=== PATIENT | female | born 1935 | race Caucasian/White ===

== ENCOUNTER 2016-08-21 14:47 | Emergency (ER) | payer MEDICARE ==
[2016-08-21] MEDS ORDERED: Aspirin Low Dose CHEW TAB* 81 MG PO ONE (15:38)
[2016-08-21 15:52] LABS: Hematocrit 30 % (35-47); Hemoglobin 9.6 g/dl (12.0-16.0); Mean Corpuscular HGB Conc 32 g/dl (31-36); Mean Corpuscular Hemoglobin 25 pg (27-31); Mean Corpuscular Volume 79 fL (80-97); Mean Platelet Volume 8 um3 (7.4-10.4); Red Blood Count 3.78 10^6/ul (4.0-5.4); Red Cell Distribution Width 16 % (10.5-15); White Blood Count 6.6 10^3/ul (3.5-10.8)
--- NOTE | 2016-08-21 16:03 | RAD ---
Indication: Chest pain. Single frontal view of the chest performed at 1550 hours was reviewed. Comparison is made with previous exam dated April 27, 2015. Hyperinflated lung estrada are noted. No mediastinal shift is noted. No pleural fluid, pneumonia or pneumothorax is noted. Likely chronic interstitial changes noted. IMPRESSION: HYPERINFLATED LUNG ESTRADA WITH CHRONIC INTERSTITIAL DISEASE. PACEMAKER LEADS ARE IN PLACE.
[2016-08-21 16:09] LABS: Albumin 3.5 g/dL (3.2-5.2); BUN/Creatinine Ratio 22.2 (8-20); Calcium 9.3 mg/dL (8.6-10.3); EGFR African American 116.1 (>60); EGFR Non-African American 90.2 (>60); Globulin 3.2 g/dL (2-4); Potassium 4.1 mmol/L (3.5-5.0); Total Bilirubin 0.4 mg/dL (0.2-1.0); Total Protein 6.7 g/dL (6.4-8.9)
[2016-08-21 16:23] LABS: Urine Bacteria Absent (Absent); Urine Bilirubin Negative (Negative); Urine Glucose Negative (Negative); Urine Nitrite Negative (Negative)
[2016-08-21 16:43] LABS: TSH (Thyroid Stimulating Horm) 0.91 mcIU/mL (0.34-5.60)
[2016-08-21] MEDS ORDERED: hydrALAZINE IV* 20 MG/ML VIAL IV SLOW PU ONE (17:16)
[2016-08-21] MEDS ORDERED: Meclizine TAB* 12.5 MG PO ONE (18:16)
--- NOTE | 2016-08-21 20:48 | RAD ---
Indication: Dizziness. Comparison: December 30, 2014 Technique: Noncontrast CT head. Report: Mild to moderate prominence of the cerebral sulci and mild prominence of the cerebellar fissures. Mild to moderate prominence of the ventricles. Patent basal cisterns. 0.7 cm chronic lacunar infarct at the LEFT caudate head without change. Decreased density in the periventricular and subcortical white matter while non-specific is most likely due to chronic microangiopathy. Negative for reyes matter white matter obscuration, intra or extra-axial hemorrhage, or mass effect. No suspicious lesion of the calvarium or skull base. Gross complete opacification of the partially visualized LEFT maxillary sinus with mild indolent thickening of the sinus escalante consistent with chronic sinusitis. Mucosal thickening at the ethmoid sinuses. Complete opacification of the LEFT frontal sinus new compared with the prior exam. Clear mastoid air spaces. Unremarkable scalp. IMPRESSION: 1. No acute intracranial process evident. 2. Small lacunar infarct at the LEFT caudate head without change. Stigmata of chronic small vessel ischemic disease. Mild to moderate involutional change. 3. Paranasal sinus disease. Correlate for potential acute sinusitis.
--- NOTE | 2016-08-21 21:21 | ED ---
Nomi Hays Adam, scribed for Adolfo Durán MD on 08/21/16 at 1553 . HPI Chest Pain - HPI Summary HPI Summary: Pt is an 81 year old female presenting with SOB. She states that she was lying down when it set on suddenly at approximately 13:00. She also c/o CP that set on with the SOB which she describes as pressure in the center of her chest that radiates somewhat to the right side of her chest. It is 6/10 in severity. Nothing alleviates/aggravates the pain. She has never had these symptoms before. Pt denies any nausea, vomiting, diaphoresis, or cough. PMHx of HTN, HLD , TAVR (on Plavix), stents, ICD, and GERD. No tobacco/alcohol use. - History of Current Complaint Chief Complaint: EDChestPainROMI Time Seen by Provider: 08/21/16 15:38 Hx Obtained From: Patient Onset/Duration: Started Hours Ago, Atraumatic, Still Present Timing: Constant Initial Severity: Moderate Current Severity: Moderate Pain Intensity: 6 Pain Scale Used: 0-10 Numeric Chest Pain Radiates: Yes Chest Pain Radiates To:: Other - Right side of chest Character: Pressure/Squeezing Aggravating Factor(s): Nothing Alleviating Factor(s): Nothing Associated Signs and Symptoms: Positive: Shortness of Breath - Allergy/Home Medications Allergies/Adverse Reactions: Allergies Allergy/AdvReac Type Severity Reaction Status Date / Time No Known Allergies Allergy Verified 04/27/15 16:45 Home Medications: Home Medications Acetaminophen TAB* [Tylenol TAB*] 2 tab PO Q4H PRN 08/21/16 [History Confirmed 08/21/16] Atorvastatin* [Lipitor*] 40 mg PO 2100 08/21/16 [History Confirmed 08/21/16] Clopidogrel TAB* [Plavix TAB*] 75 mg PO DAILY 08/21/16 [History Confirmed ] Metoprolol Tartrate TAB* [Lopressor TAB*] 25 mg PO BID 08/21/16 [History Confirmed 08/21/16] Valsartan TAB* [Diovan TAB*] 160 mg PO DAILY 08/21/16 [History Confirmed ] PMH/Surg Hx/FS Hx/Imm Hx Endocrine/Hematology History: Denies: Hx Diabetes Cardiovascular History: Reports: Hx Hypercholesterolemia, Hx Hypertension, Hx Pacemaker/ICD - 2008, Hx Syncope - Oct, 2014, Hx Valvular Heart Disease - Aortic valve narrowing, Other Cardiovascular Problems/Disorders - complete heart block Denies: Hx Congestive Heart Failure GI History: Reports: Hx Gastroesophageal Reflux Disease, Other GI Disorders - Appendectomy History: Denies: Hx Renal Disease Musculoskeletal History: Reports: Hx Orthopedic Injury - fx of L foot, Other Musculoskeletal History - Hip fx and replacement Denies: Hx Arthritis Sensory History: Reports: Hx Vision Problem - left eye "pressure is high" Opthamlomology History: Reports: Hx Vision Problem - left eye "pressure is high " Psychiatric History: Reports: Hx Anxiety - Surgical History Surgery Procedure, Year, and Place: PACER, LEFT TOTAL HIP REPLACEMENT, APPENDECTOMY Infectious Disease History: No Infectious Disease History: Denies: History Other Infectious Disease, Traveled Outside the [place] in Last 30 Days - Family History Known Family History: Positive: Cardiac Disease - Father - Social History Occupation: Retired Lives: Alone Alcohol Use: None Hx Substance Use: No Substance Use Type: Reports: None Hx Tobacco Use: No Smoking Status (MU): Never Smoked Tobacco Review of Systems Negative: Fever Positive: Chest Pain Positive: Shortness Of Breath All Other Systems Reviewed And Are Negative: Yes Physical Exam - Summary Physical Exam Summary: VITAL SIGNS: Reviewed. GENERAL: Patient is a well developed and nourished female who is lying comfortable in the stretcher. Patient is not in any acute respiratory distress. HEAD AND FACE: No signs of trauma. No ecchymosis, hematomas or skull depressions. No sinus tenderness. EYES: PERRLA, EOMI x 2, No injected conjunctiva, no nystagmus. EARS: Hearing grossly intact. Ear canals and tympanic membranes are within normal limits. MOUTH: Oropharynx within normal limits. NECK: Supple, trachea is midline, no adenopathy, no JVD, no carotid bruit, no c- spine tenderness, neck with full ROM. CHEST: Symmetric, no tenderness at palpation LUNGS: Clear to auscultation bilaterally. No wheezing or crackles. CVS: Regular rate and rhythm, S1 and S2 present, no murmurs or gallops appreciated. ABDOMEN: Soft, non-tender. No signs of distention. No rebound no guarding, and no masses palpated. Bowel sounds are normal. EXTREMITIES: FROM in all major joints, no edema, no cyanosis or clubbing. NEURO: Alert and oriented x 3. No acute neurological deficits. Speech is normal and follows commands. SKIN: Dry and warm Triage Information Reviewed: Yes Vital Signs On Initial Exam: Initial Vitals Temp Pulse Resp BP Pulse Ox 97.1 F 58 20 202/77 100 08/21/16 14:50 08/21/16 14:50 08/21/16 14:50 08/21/16 14:50 08/21/16 14:50 Vital Signs Reviewed: Yes Diagnostics - Vital Signs Vital Signs Temp Pulse Resp BP Pulse Ox 08/21/16 14:50 97.1 F 58 20 100 - Laboratory Lab Results: Lab Results 08/21/16 08/21/16 Range/Units 15:40 15:40 WBC 6.6 (3.5-10.8) 10^3/ul RBC 3.78 L (4.0-5.4) 10^6/ul Hgb 9.6 L (12.0-16.0) g/dl Hct 30 L (35-47) % MCV 79 L (80-97) fL MCH 25 L (27-31) pg MCHC 32 (31-36) g/dl RDW 16 H (10.5-15) % Plt Count 223 (150-450) 10^3/ul MPV 8 (7.4-10.4) um3 Neut % (Auto) 62.8 (38-83) % Lymph % (Auto) 21.8 L (25-47) % [place] % (Auto) 8.8 (1-9) % Eos % (Auto) 6.3 H (0-6) % Baso % (Auto) 0.3 (0-2) % Absolute Neuts (auto) 4.2 (1.5-7.7) 10^3/ul Absolute Lymphs (auto) 1.4 (1.0-4.8) 10^3/ul Absolute Monos (auto) 0.6 (0-0.8) 10^3/ul Absolute Eos (auto) 0.4 (0-0.6) 10^3/ul Absolute Basos (auto) 0 (0-0.2) 10^3/ul Absolute Nucleated RBC 0.01 10^3/ul Nucleated RBC % 0.1 INR (Anticoag Therapy) 1.02 (0.89-1.11) APTT 29.9 (26.0-36.3) seconds Result Diagrams: 08/21/16 15:40 08/21/16 15:40 Lab Statement: Any lab studies that have been ordered have been reviewed, and results considered in the medical decision making process. - Radiology CXR Radiology Interpretation Completed By: Radiologist - IMPRESSION: HYPERINFLATED LUNG ESTRADA WITH CHRONIC INTERSTITIAL DISEASE. PACEMAKER LEADS ARE IN PLACE. - CT BRAIN CT Interpretation Completed By: Radiologist - IMPRESSION: 1. No acute intracranial process evident. 2. Small lacunar infarct at the LEFT caudate head without change. Stigmata of chronic small vessel ischemic disease. Mild to moderate involutional change. 3. Paranasal sinus disease. Correlate for potential acute sinusitis. - EKG 14:58 Cardiac Rate: NL - 60 BPM EKG Interpretation: Atrial paced rhythm. No ST elevations. - Additional Comments Diagnostic Additional Comments: Troponin I - 0.00 (15:40), 0.00 (18:40) Chest Pain Course/Dx - Course Course Of Treatment: Pt is an 81 year old female presenting with SOB. She states that she was lying down when it set on suddenly at approximately 13:00. She also c/o CP that set on with the SOB which she describes as pressure in the center of her chest that radiates somewhat to the right side of her chest. It is 6/10 in severity. Nothing alleviates/aggravates the pain. She has never had these symptoms before. Pt denies any nausea, vomiting, diaphoresis, or cough. PMHx of HTN, HLD, TAVR (on Plavix), stents, ICD, and GERD. No tobacco/alcohol use. Assessment/Plan: BW is WNL except for mild chronic anemia. BNP is 251. UA is negative. CXR shows hyperinflated lungs and pacemaker leads in place. EKG as above. In the ED course the pt was given ASA. CP is no longer present. Pt reported dizziness with room spinning. Therefore the pt was given meclizine. After the meclizine the pt reports improvement. We did 2 troponins and they are negative. Therefore the pt will be discharged home with follow-up with PCP and cardiology. The pt will return to the ED if any of her symptoms worsen. I discussed all the findings and test results with the patient. Patient was instructed to return to the emergency room immediately if any of the symptoms return or worsens. Patient understands and agrees. Plan of care was discussed with the patient and patient understands and agrees with the plan of care. All questions were answered at patient satisfaction. There were no further complaints or concerns. Patient is alert and oriented x 3. Patient vital signs are stable. Patient is to follow up with primary care physician in the next 2 to 3 days. Patient understands and agrees. - Chest Pain Differential Diagnosis/HQI/PQRI: Acute DC, ACS, Angina, CHF, Chest Wall, GI Disease, Lower Respiratory Infection, Pulmonary Edema - Diagnoses Provider Diagnoses: Vertigo, Atypical chest pain Discharge - Discharge Plan Condition: Stable Disposition: HOME Patient Education Materials: Vertigo (ED), Chest Pain (ED) Referrals: David Gibson MD [Primary Care Provider] - Darshan Mckeon MD [Medical Doctor] - Additional Instructions: Follow up with Dr. Gibson and Dr. Mckeon (Cardiology). The documentation as recorded by the Nomi dhaliwal Adam accurately reflects the service I personally performed and the decisions made by , Adolfo Durán MD.
[2016-08-21 21:33] VITALS: BP 132/54
== END 2016-08-21 21:20 | disposition home or self-care (01) ==
LOC: ED 14:47
DX: R42 Dizziness and giddiness (principal); R07.89 Other chest pain; R06.02 Shortness of breath
CPT/HCPCS: 36415; 70450; 71010; 80053; 81003; 81015; 82550; 82553; 83605; 83735; 83880; 84443; 84484; 85025; 85610; 85730; 87086; 93005; 96374; 99284; A9270-GY; J0360

== ENCOUNTER 2016-10-12 14:14 | Inpatient (IN) | payer MEDICARE ==
[2016-10-12] MEDS ORDERED: NS 0.9% 1000 ML* 1,000 ML IV ONE (17:10)
[2016-10-12 17:28] LABS: Hematocrit 35 % (35-47); Hemoglobin 11.3 g/dl (12.0-16.0); Mean Corpuscular HGB Conc 33 g/dl (31-36); Mean Corpuscular Hemoglobin 27 pg (27-31); Mean Corpuscular Volume 84 fL (80-97); Mean Platelet Volume 9 um3 (7.4-10.4); Red Blood Count 4.13 10^6/ul (4.0-5.4); Red Cell Distribution Width 20 % (10.5-15); White Blood Count 7.1 10^3/ul (3.5-10.8)
[2016-10-12 17:40] LABS: Albumin 3.8 g/dL (3.2-5.2); BUN/Creatinine Ratio 21.3 (8-20); C Reactive Protein 6.84 mg/L (< 5.00); Calcium 9.3 mg/dL (8.6-10.3); EGFR African American 77.9 (>60); EGFR Non-African American 60.6 (>60); Globulin 3.5 g/dL (2-4); Magnesium 1.9 mg/dL (1.9-2.7); Potassium 4.2 mmol/L (3.5-5.0); Total Bilirubin 0.4 mg/dL (0.2-1.0); Total Protein 7.3 g/dL (6.4-8.9)
[2016-10-12 17:43] LABS: Troponin I 0.01 ng/mL (<0.04)
[2016-10-12 17:44] LABS: Urine Bacteria 1+ (Absent); Urine Bilirubin Negative (Negative); Urine Glucose Negative (Negative); Urine Nitrite Positive (Negative)
[2016-10-12 17:49] LABS: TSH (Thyroid Stimulating Horm) 2.24 mcIU/mL (0.34-5.60)
[2016-10-12] MEDS ORDERED: cefTRIAXone(*) 1 GM in NS 0.9% 50 ML* 50 ML IVPB ONE (18:05)
--- NOTE | 2016-10-12 18:19 | RAD ---
Indication: Weakness. Single frontal view of the chest performed at 1710 hours was reviewed. Comparison is made with previous exam dated August 21, 2016. No mediastinal shift is noted. Heart is of normal size and configuration. Lung ventura appear clear. Pacemaker leads are in place. No changes noted since previous exam. IMPRESSION: NO ACTIVE CARDIOPULMONARY DISEASE IS NOTED.
[2016-10-12] MEDS ORDERED: Ondansetron INJ* 2 MG/ML VIAL IV ONE (18:26)
[2016-10-12] MEDS ORDERED: Iohexol 300* (CONTRAST) 10 ML SDV IV ONE (18:44)
[2016-10-12] MEDS ORDERED: Ondansetron INJ* 2 MG/ML VIAL IV PRN (18:58)
[2016-10-12] MEDS: Metoprolol Tartrate TAB* 25 MG PO SCH ×2 (19:41→21:48)
[2016-10-12] MEDS: Acetaminophen TAB* 325 MG PO PRN (19:41)
[2016-10-12] MEDS: Valsartan TAB* 160 MG PO SCH ×2 (19:41→21:48)
--- NOTE | 2016-10-12 20:26 | RAD ---
Indication: Lower abdominal pain. Contrast: Administered 74.8 ml of OMNIPAQUE 300 mgi/ml CT of the abdomen and pelvis was performed after oral and IV contrast administration. Coronal and sagittal reconstructed images were obtained. Lung bases demonstrate small left pleural effusion. Left basilar atelectasis is noted. Emphysematous changes of the lung ventura are noted. The heart demonstrates no pericardial effusion. There is a hiatal hernia present. The liver is normal in size. No focal lesions or intrahepatic ductal dilatation is noted. The gallbladder demonstrates calcified gallstones in the dependent portion. No pericholecystic fluid or wall thickening is identified. The pancreas demonstrates no mass or pancreatic duct dilatation. The common duct is not dilated. The spleen is normal in size. Bilateral adrenal hyperplasia is noted. The kidneys demonstrate symmetric nephrograms without focal lesions. No retroperitoneal lymphadenopathy is noted. Ectasia of the abdominal aorta is noted measuring up to 2.6 x 3.1 cm. Common iliac arteries are unremarkable. CT of the pelvis demonstrates the cecum to be adjacent to the rectum. Terminal ileum is low in the pelvis posterior to the urinary bladder. Appendix is not visualized. Diverticulosis without definite evidence of diverticulitis. No dilated loops of bowel are noted. The colon is filled with stool. Lumbar spine demonstrates degenerative disc disease at multiple levels with diffuse osteopenia. Patient status post left hip replacement. IMPRESSION: THE CECUM IS ADJACENT TO THE RECTUM LOW IN THE PELVIS. NO EVIDENCE OF BOWEL OBSTRUCTION IS NOTED. DIVERTICULOSIS WITHOUT DEFINITE EVIDENCE OF DIVERTICULITIS. CHOLELITHIASIS WITHOUT BILIARY DUCT DILATATION. A SMALL LEFT PLEURAL EFFUSION IS NOTED. THERE IS A HIATAL HERNIA PRESENT. MILD ECTASIA OF THE ABDOMINAL AORTA IS NOTED. THE PATIENT IS STATUS POST LEFT HIP REPLACEMENT.
[2016-10-12] MEDS: cefTRIAXone VIAL(*) 1,000 MG in NS 0.9% 50 ML* 50 ML IVPB SCH (21:42)
[2016-10-12] MEDS: Atorvastatin* 20 MG TAB PO SCH (21:48)
[2016-10-12] MEDS: Brimonid/Timolol 0.2/0.5%(NF) 10 ML OPHTH.SOLN BOTH EYES SCH (21:49)
--- NOTE | 2016-10-12 21:54 | ED ---
Zeus Hays Billy, scribed for Jw Franklin MD on 10/12/16 at 1431 . Complex/Multi-Sys Presentation - HPI Summary HPI Summary: Patient is an 81 year-old female coming to [facility] for evaluation of general weakness and near-syncopal sensation today. She reports some lower abdominal pain and increased urinary frequency. She denies any chest pain or shortness of breath. Denies any pain or swelling of the legs. - History Of Current Complaint Chief Complaint: EDWeakness Time Seen by Provider: 10/12/16 14:28 Hx Obtained From: Patient Onset/Duration: Gradual Onset Timing: Constant Severity Currently: Moderate Severity Initially: Moderate Aggravating Factor(s): none Alleviating Factor(s): none Associated Signs And Symptoms: Positive: Dizziness, Abdominal Pain, Other - near -syncope, urinary frequency. Negative: SOB, Chest Pain - Allergies/Home Medications Allergies/Adverse Reactions: Allergies Allergy/AdvReac Type Severity Reaction Status Date / Time No Known Allergies Allergy Verified 04/27/15 16:45 Home Medications: Home Medications Acetaminophen TAB* [Tylenol TAB*] 650 mg PO Q4H PRN 10/12/16 [History Confirmed 10/12/16] Amiodarone HCl [Amiodarone HCl-] 200 mg PO DAILY 10/12/16 [History Confirmed ] Aspirin EC Low Dose* [Ecotrin EC Low Dose 81 MG*] 81 mg PO DAILY 10/12/16 [ History Confirmed 10/12/16] Atorvastatin* [Lipitor*] 20 mg PO 2100 10/12/16 [History Confirmed 10/12/16] Brimonid/Timolol 0.2/0.5%(NF) [Combigan 0.2/0.5% (NF)] 1 drop BOTH EYES BID [History Confirmed 10/12/16] Latanoprost 0.005%* [Xalatan 0.005%*] 1 drop BOTH EYES QPM 10/12/16 [History Confirmed 10/12/16] Metoprolol Tartrate TAB* [Lopressor TAB*] 25 mg PO BID 10/12/16 [History Confirmed 10/12/16] Multiple Vitamins W/ Minerals [Ocuvite Eye Health Formul] 1 cap PO DAILY [History Confirmed 10/12/16] Pantoprazole TAB (NF) [Protonix TAB (NF)] 40 mg PO DAILY 10/12/16 [History Confirmed 10/12/16] Rivaroxaban TAB(*) [Xarelto 15 mg(*)] 15 mg PO DAILY 10/12/16 [History Confirmed 10/12/16] Valsartan TAB* [Diovan TAB*] 160 mg PO BEDTIME 10/12/16 [History Confirmed 10/12] PMH/Surg Hx/FS Hx/Imm Hx Endocrine/Hematology History: Denies: Hx Diabetes Cardiovascular History: Reports: Hx Hypercholesterolemia, Hx Hypertension, Hx Pacemaker/ICD - 2007, Hx Syncope - Oct, 2014, Hx Valvular Heart Disease - Aortic valve narrowing, Other Cardiovascular Problems/Disorders - complete heart block Denies: Hx Congestive Heart Failure GI History: Reports: Hx Gastroesophageal Reflux Disease, Other GI Disorders - Appendectomy History: Denies: Hx Renal Disease Musculoskeletal History: Reports: Hx Orthopedic Injury - fx of L foot, Other Musculoskeletal History - Hip fx and replacement Denies: Hx Arthritis Sensory History: Reports: Hx Vision Problem - left eye "pressure is high" Opthamlomology History: Reports: Hx Vision Problem - left eye "pressure is high " Psychiatric History: Reports: Hx Anxiety - Surgical History Surgery Procedure, Year, and Place: PACER, LEFT TOTAL HIP REPLACEMENT, APPENDECTOMY Infectious Disease History: No Infectious Disease History: Denies: History Other Infectious Disease, Traveled Outside the [place] in Last 30 Days - Family History Known Family History: Positive: Cardiac Disease - Father - Social History Occupation: Retired Lives: Alone Alcohol Use: None Hx Substance Use: No Substance Use Type: Reports: None Hx Tobacco Use: No Smoking Status (MU): Never Smoked Tobacco Review of Systems Negative: Chest Pain Negative: Shortness Of Breath Positive: Abdominal Pain Positive: frequency Negative: Myalgia, Edema Neurological: Other - near-syncope Positive: Weakness All Other Systems Reviewed And Are Negative: Yes Physical Exam Triage Information Reviewed: Yes Vital Signs On Initial Exam: Initial Vitals Temp Pulse Resp BP Pulse Ox 98.8 F 61 14 222/89 96 10/12/16 14:19 10/12/16 14:19 10/12/16 14:19 10/12/16 14:19 10/12/16 14:19 Vital Signs Reviewed: Yes Appearance: Positive: Well-Appearing, No Pain Distress Skin: Positive: Warm, Skin Color Reflects Adequate Perfusion, Dry Head/Face: Positive: Normal Head/Face Inspection Eyes: Positive: EOMI, CONSTANTINO ENT: Positive: Normal ENT inspection Neck: Positive: Supple, Nontender Respiratory/Lung Sounds: Positive: Clear to Auscultation, Breath Sounds Present Cardiovascular: Positive: RRR Abdomen Description: Positive: Soft, Other: - Tenderness to the lower abdomen. Bowel Sounds: Positive: Present Musculoskeletal: Positive: Strength/ROM Intact, Other - Calves are soft and nontender.. Negative: Edema Left, Edema Right Neurological: Positive: Normal, Sensory/Motor Intact, Alert, Oriented to Person Place, Time Psychiatric: Positive: Affect/Mood Appropriate Diagnostics - Vital Signs Vital Signs Temp Pulse Resp BP Pulse Ox 10/12/16 14:25 99.2 F 60 16 222/89 97 10/12/16 14:24 59 97 10/12/16 14:22 222/89 10/12/16 14:19 98.8 F 61 14 222/89 96 - Laboratory Lab Results: Lab Results 10/12/16 10/12/16 10/12/16 Range/Units 14:43 14:43 14:43 WBC 7.1 (3.5-10.8) 10^3/ul RBC 4.13 (4.0-5.4) 10^6/ul Hgb 11.3 L (12.0-16.0) g/dl Hct 35 (35-47) % MCV 84 (80-97) fL MCH 27 (27-31) pg MCHC 33 (31-36) g/dl RDW 20 H (10.5-15) % Plt Count 285 (150-450) 10^3/ul MPV 9 (7.4-10.4) um3 Neut % (Auto) 72.4 (38-83) % Lymph % (Auto) 14.2 L (25-47) % [place] % (Auto) 7.1 (1-9) % Eos % (Auto) 5.1 (0-6) % Baso % (Auto) 1.2 (0-2) % Absolute Neuts (auto) 5.1 (1.5-7.7) 10^3/ul Absolute Lymphs (auto) 1.0 (1.0-4.8) 10^3/ul Absolute Monos (auto) 0.5 (0-0.8) 10^3/ul Absolute Eos (auto) 0.4 (0-0.6) 10^3/ul Absolute Basos (auto) 0.1 (0-0.2) 10^3/ul Absolute Nucleated RBC 0 10^3/ul Nucleated RBC % 0 INR (Anticoag Therapy) 1.98 H (0.89-1.11) APTT 40.2 H (26.0-36.3) seconds Sodium 131 L (133-145) mmol/L Potassium 4.2 (3.5-5.0) mmol/L Chloride 99 L (101-111) mmol/L Carbon Dioxide 26 (22-32) mmol/L Anion Gap 6 (2-11) mmol/L BUN 19 (6-24) mg/dL Creatinine 0.89 (0.51-0.95) mg/dL Est GFR ( Amer) 77.9 (>60) Est GFR (Non-Af Amer) 60.6 (>60) BUN/Creatinine Ratio 21.3 H (8-20) Glucose 100 (70-100) mg/dL Lactic Acid (0.5-2.0) mmol/L Calcium 9.3 (8.6-10.3) mg/dL Magnesium 1.9 (1.9-2.7) mg/dL Total Bilirubin 0.40 (0.2-1.0) mg/dL AST 19 (13-39) U/L ALT 16 (7-52) U/L Alkaline Phosphatase 95 (34-104) U/L Total Creatine Kinase 23 (10-223) U/L CK-MB (CK-2) 1.8 (0.6-6.3) ng/mL Troponin I 0.01 (<0.04) ng/mL C-Reactive Protein 6.84 H (< 5.00) mg/L B-Natriuretic Peptide ( - 100) pg/mL Total Protein 7.3 (6.4-8.9) g/dL Albumin 3.8 (3.2-5.2) g/dL Globulin 3.5 (2-4) g/dL Albumin/Globulin Ratio 1.1 (1-3) Lipase 41 (11.0-82.0) U/L TSH 2.24 (0.34-5.60) mcIU/mL Urine Color Urine Appearance Urine pH (5-9) Ur Specific [place] (1.010-1.030) Urine Protein (Negative) Urine Ketones (Negative) Urine Blood (Negative) Urine Nitrate (Negative) Urine Bilirubin (Negative) Urine Urobilinogen (Negative) Ur Leukocyte Esterase (Negative) Urine WBC (Auto) (Absent) Urine RBC (Auto) (Absent) Ur Squamous Epith Cells (Absent) Urine Bacteria (Absent) Urine Glucose (Negative) Urine Ascorbic Acid (Negative) 10/12/16 10/12/16 10/12/16 Range/Units 14:43 15:35 17:35 WBC (3.5-10.8) 10^3/ul RBC (4.0-5.4) 10^6/ul Hgb (12.0-16.0) g/dl Hct (35-47) % MCV (80-97) fL MCH (27-31) pg MCHC (31-36) g/dl RDW (10.5-15) % Plt Count (150-450) 10^3/ul MPV (7.4-10.4) um3 Neut % (Auto) (38-83) % Lymph % (Auto) (25-47) % [place] % (Auto) (1-9) % Eos % (Auto) (0-6) % Baso % (Auto) (0-2) % Absolute Neuts (auto) (1.5-7.7) 10^3/ul Absolute Lymphs (auto) (1.0-4.8) 10^3/ul Absolute Monos (auto) (0-0.8) 10^3/ul Absolute Eos (auto) (0-0.6) 10^3/ul Absolute Basos (auto) (0-0.2) 10^3/ul Absolute Nucleated RBC 10^3/ul Nucleated RBC % INR (Anticoag Therapy) (0.89-1.11) APTT (26.0-36.3) seconds Sodium (133-145) mmol/L Potassium (3.5-5.0) mmol/L Chloride (101-111) mmol/L Carbon Dioxide (22-32) mmol/L Anion Gap (2-11) mmol/L BUN (6-24) mg/dL Creatinine (0.51-0.95) mg/dL Est GFR ( Amer) (>60) Est GFR (Non-Af Amer) (>60) BUN/Creatinine Ratio (8-20) Glucose (70-100) mg/dL Lactic Acid 0.8 (0.5-2.0) mmol/L Calcium (8.6-10.3) mg/dL Magnesium (1.9-2.7) mg/dL Total Bilirubin (0.2-1.0) mg/dL AST (13-39) U/L ALT (7-52) U/L Alkaline Phosphatase (34-104) U/L Total Creatine Kinase (10-223) U/L CK-MB (CK-2) (0.6-6.3) ng/mL Troponin I (<0.04) ng/mL C-Reactive Protein (< 5.00) mg/L B-Natriuretic Peptide 199 H ( - 100) pg/mL Total Protein (6.4-8.9) g/dL Albumin (3.2-5.2) g/dL Globulin (2-4) g/dL Albumin/Globulin Ratio (1-3) Lipase (11.0-82.0) U/L TSH (0.34-5.60) mcIU/mL Urine Color Yellow Urine Appearance Cloudy Urine pH 7.0 (5-9) Ur Specific [place] 1.009 L (1.010-1.030) Urine Protein Negative (Negative) Urine Ketones Negative (Negative) Urine Blood Negative (Negative) Urine Nitrate Positive H (Negative) Urine Bilirubin Negative (Negative) Urine Urobilinogen Negative (Negative) Ur Leukocyte Esterase 2+ H (Negative) Urine WBC (Auto) 1+(6-10/hpf) H (Absent) Urine RBC (Auto) 1+(3-5/hpf) H (Absent) Ur Squamous Epith Cells Present H (Absent) Urine Bacteria 1+ H (Absent) Urine Glucose Negative (Negative) Urine Ascorbic Acid * H (Negative) Result Diagrams: 10/12/16 14:43 10/12/16 14:43 Lab Statement: Any lab studies that have been ordered have been reviewed, and results considered in the medical decision making process. - Radiology CXR Xray Interpretation: No Acute Changes Radiology Interpretation Completed By: Radiologist - CT abd/pel CT Interpretation Completed By: Radiologist - THE CECUM IS ADJACENT TO THE RECTUM LOW IN THE PELVIS. NO EVIDENCE OF BOWEL OBSTRUCTION IS NOTED. DIVERTICULOSIS WITHOUT DEFINITE EVIDENCE OF DIVERTICULITIS. CHOLELITHIASIS WITHOUT BILIARY DUCT DILATATION. A SMALL LEFT PLEURAL EFFUSION IS NOTED. THERE IS A HIATAL HERNIA PRESENT. MILD ECTASIA OF THE ABDOMINAL AORTA IS NOTED. THE PATIENT IS STATUS POST LEFT HIP REPLACEMENT. - EKG 1421 EKG Interpretation: atrial paced rhythm Re-Evaluation - Re-Evaluation First Eval Re-Evaluation Time: 18:13 Comment: Labs reviewed. Complex Multi-Symp Course/Dx Course Of Treatment: NO CRITICAL CARE TIME. Assessment/Plan: ADMIT HOSPITALIST STABLE. - Diagnoses Provider Diagnoses: Weakness, UTI (urinary tract infection), Abdominal pain - Physician Notifications Discussed Care Of Patient With: Dr. Pizarro (hospitalist) at 1830 Discharge - Discharge Plan Condition: Stable Disposition: ADMITTED TO [facility] documentation as recorded by the Zeus dhaliwal Billy accurately reflects the service I personally performed and the decisions made by me, Jw Franklin MD.
--- NOTE | 2016-10-13 00:25 | HP ---
HISTORY AND PHYSICAL: DATE OF ADMISSION: 10/12/16 PRIMARY CARE PROVIDER: David Gibson MD ATTENDING PHYSICIAN WHILE IN THE HOSPITAL: Narayan Nichole MD *(report dictated by Adolph Gross NP) CHIEF COMPLAINT: 1. Dizziness. 2. Weakness. HISTORY OF PRESENT ILLNESS: Ms. Luz is an 81-year-old female patient. She carries a history of hypertension, TIA, third-degree heart block, status post pacemaker, GERD, hiatal hernia, aortic stenosis, AFib, CAD, and syncope. She comes in to the ER today stating that today she was feeling short of breath particularly with exertion, feeling lightheaded, particularly worsening with changing position, feeling weak and tired, not able to perform her activities of daily living. She does state that she felt nauseous. She says that she could not lie flat because she felt short of breath. She says she did not have any chest pain. She said her appetite has been down over the last 24 to 48 hours and she states she has been having symptoms like this off and on for the last several weeks. She recently was in [facility] for a month and was recently discharged after being in [facility] for a week for similar complaints. She denied again having any chest pain. She says that she has any swelling in the lower extremities. Denied any fevers or chills. She does admit to having some lower abdominal-type pressure in the suprapubic area. No recent change in medication, but she has been placed on Xarelto and she has been placed on Protonix. Otherwise, besides this weakness feeling and dizziness, she had been feeling well. She denies having any spinning sensation in the room and says that positional change does make the symptoms worse. She came in to the ED. She was evaluated. Ultimately, it was found she had a UTI and the hospital service was asked to evaluate for admission. PAST MEDICAL HISTORY: Significant for: 1. Hypertension. 2. TIA. 3. Third-degree heart block. 4. GERD. 5. Hiatal hernia. 6. Aortic stenosis. 7. Syncope. 8. CAD. 9. Atrial fibrillation. PAST SURGICAL HISTORY: 1. She has had a pacemaker. 2. She has had aortic valve replacement. 3. She has had cardiac catheterization with stents. 4. Total hip arthroplasty. 5. Appendectomy. HOME MEDICATIONS: According to the discharge summary list include: 1. Protonix 40 mg daily. 2. Diovan 160 mg p.o. daily. 3. Xarelto 15 mg p.o. daily. 4. Multivitamin 1 tablet daily. 5. Lopressor 25 mg p.o. twice a day. 6. Latanoprost 1 drop both eyes daily. 7. Aspirin 81 mg daily. 8. Combigan 1 drop both eyes b.i.d. 9. Lipitor 30 mg daily. 10. Amiodarone 200 mg daily. 11. Tylenol 650 mg every 4 hours as needed. ALLERGIES TO MEDICATIONS: Include no known drug allergies. FAMILY HISTORY: Mother from what the patient states of old age. Father had a history of heart disease. SOCIAL HISTORY: The patient is a nonsmoker. She does not drink alcohol. She lives alone. Surrogate decision maker is her daughter. REVIEW OF SYSTEMS: There is no documented fever. She denies having any ear discharge. There is no rhinorrhea. No sore throat. No thyroid enlargement. She denied having any chest pain. There was orthopnea. There is no nocturnal dyspnea. There is no abdominal pain. There was nausea. There is no vomiting. No dysuria. No frequency. No loss of consciousness. No pruritus. No skin ulcerations. Review of 14 systems completed, all others negative. PHYSICAL EXAMINATION GENERAL: At this time, Ms. Luz is an 81-year-old female patient. She is sitting in the ER stretcher. She does not appear to be in any acute distress. She is awake, she is alert, and she is oriented x3. VITAL SIGNS: Reveals blood pressure 179/94, her blood pressure was 224/79; pulse 60; respirations 18; O2 sat 98%; and temperature 99.2. HEENT: Head is atraumatic and normocephalic. Eyes: EOMs are intact. Sclerae anicteric and not pale. NECK: Supple. Throat: Oral mucosa appears to be moist. No oropharyngeal erythema. LUNGS: Clear to auscultation. No wheezes, rales, or rhonchi. HEART: Sounds S1, S2. Regular rate and rhythm. No murmurs, rubs, or gallops. ABDOMEN: Soft, flat. There was tenderness in the suprapubic area. She had bowel sounds in all 4 quadrants. EXTREMITIES: Pulses were 2+ throughout. She had no peripheral edema. She is able to move all 4 extremities with 5/5 strength. NEUROLOGIC: She is awake, she is alert, and she is oriented x3. Toggler are equal. Tongue midline. No gross focal deficits. SKIN: Intact. DIAGNOSTIC STUDIES/LAB DATA: Revealed WBC of 7.1, RBC of 4.13, hemoglobin 11.3 , hematocrit 35, and platelet count of 285. INR 1.98 and PTT of 40.2. Sodium 131, potassium 4.2, chloride 99, bicarb 26, BUN 19, creatinine of 0.89, glucose 100, lactic 0.8, calcium 9.3, and magnesium 1.9. Total bili 0.4, AST 19, ALT 16 , and alk phos 95. CK 23 and CK-MB 1.8. Troponin 0.01. CRP is 6.8. BNP 199. Lipase 41. TSH of 2.24. Urine showed positive nitrates, 2+ leukocyte esterase, 1+ wbc, and present bacteria. She had a chest x-ray obtained today, which revealed no active cardiopulmonary disease. She had an EKG obtained today, which revealed atrial paced rhythm with a rate of 60. No further interpretation due to paced rhythm. Old medical records were reviewed. ASSESSMENT AND PLAN: Ms. Luz is an 81-year-old female patient coming in to the ER today with complaints of lightheadedness and not feeling well, worsening with position change. On evaluation, was found to have urinary tract infection. She will be admitted under observation status for: 1. Weakness with dizziness: I suspect that there is a component of mild dehydration here. In addition to this, the urinary tract infection is probably not helping. My plan, however, would be to go ahead and treat the urinary tract infection with Rocephin. I will hydrate her. We will give her a liter down here in the ED and see how she responds. In addition to this, we will check orthostatic blood pressures and we will get a PT evaluation. We will continue to monitor. Ultimately though this overall weakness and her generalized decline that she has been having, sounds like several weeks now. She may benefit from assisted living, so I did put a social work consult in for the patient. Because of the lower suprapubic abdominal discomfort, we will go ahead and check a CT of the abdomen and pelvis to make sure she does not have any underlying infection such as diverticulitis or pyelonephritis. Otherwise, suspect this is less likely, so I will continue Rocephin, IV fluids, and hydration and we will follow. 2. Hypertension: Her blood pressures here at one point were in the 200s, it is 179 now. I will go ahead and give her nightly medications and if we need to , we can add on another agent or increase her current agents. 3. History of transient ischemic attack: Continue with secondary prevention. 4. Gastroesophageal reflux disease: Continue PPI therapy. 5. Aortic stenosis: She did have aortic valve replacement. She can follow up with her primary manager of investigations. 6. Coronary artery disease: She is on a beta jonnathan. We will continue that. She is on statin and aspirin, continue. 7. History of atrial fibrillation: Continue the amiodarone at a reduced dose, which was done on Thursday. In addition to this, continue her Xarelto. 8. DVT prophylaxis: She is on Xarelto. We will continue this. 9. Code status: DNR. 10. Fluids, electrolytes, and nutrition: She can have a regular diet. TIME SPENT: Time spent on the admission was approximately 60 minutes; greater than half the time was spent [id number] with the patient obtaining my history and physical, the other half time is spent going over the plan of care with the patient and implementing plan of care. I discussed the plan of care with my attending, Dr. Nichole. He is in agreement. ADOLPH GROSS NP CC: Dr. Gibson* [id number]/[facility] #: [id number] [facility]ENTER[facility]ory
[2016-10-13] MEDS: NS 0.9% 1000 ML* 1,000 ML IV SCH (03:11)
[2016-10-13 07:03] LABS: Hematocrit 30 % (35-47); Hemoglobin 9.9 g/dl (12.0-16.0); Mean Corpuscular HGB Conc 33 g/dl (31-36); Mean Corpuscular Hemoglobin 28 pg (27-31); Mean Corpuscular Volume 84 fL (80-97); Mean Platelet Volume 8 um3 (7.4-10.4); Red Blood Count 3.55 10^6/ul (4.0-5.4); Red Cell Distribution Width 19 % (10.5-15); White Blood Count 6.4 10^3/ul (3.5-10.8)
[2016-10-13 07:12] LABS: Calcium 8.2 mg/dL (8.6-10.3); EGFR African American 77.9 (>60); EGFR Non-African American 60.6 (>60); Potassium 4.3 mmol/L (3.5-5.0)
[2016-10-13] MEDS: Omeprazole CAP* 20 MG PO SCH (10:36)
[2016-10-13] MEDS: Rivaroxaban TAB(*) 15 MG PO SCH (10:36)
[2016-10-13] MEDS: Amiodarone TAB* 200 MG PO SCH (10:37)
[2016-10-13] MEDS: Aspirin EC Low Dose* 81 MG TAB.EC PO SCH (10:37)
[2016-10-13] MEDS: Metoprolol Tartrate TAB* 25 MG PO SCH ×2 (10:37→20:47)
--- NOTE | 2016-10-13 15:22 | PN ---
Subjective Date of Service: 10/13/16 Interval History: Pt is feeling ok. She states she does not know why she did not walk with PT this AM. She states she does not feel weak. No pain or SOB. Objective Active Medications: Acetaminophen (Tylenol Tab*) 650 mg PO Q4H PRN PRN Reason: FEVER/PAIN Last Admin: 10/12/16 19:41 Dose: 650 mg Amiodarone HCl (Cordarone Tab*) 200 mg PO DAILY FOR[facility]LY [facility], [facility] Last Admin: 10/13/16 10:37 Dose: 200 mg Aspirin (Aspirin Ec Low Dose*) 81 mg PO DAILY [facility], [facility] Last Admin: 10/13/16 10:37 Dose: 81 mg Atorvastatin Calcium (Lipitor*) 20 mg PO 2100 [facility], [facility] Last Admin: 10/12/16 21:48 Dose: 20 mg Brimonidine/Timolol (Combigan 0.2/0.5% (Nf)) 1 drop BOTH EYES BID FOR[facility]LY [facility], [facility]1983 Last Admin: 10/12/16 21:49 Dose: Not Given Ceftriaxone Sodium 1,000 mg/ (Sodium Chloride) 50 mls @ 200 mls/hr IVPB Q24H FOR[facility], [facility] Last Admin: 10/12/16 21:42 Dose: 200 mls/hr Sodium Chloride (Ns 0.9% 1000 Ml*) 1,000 mls @ 100 mls/hr IV PER RATE FORMERLY [facility], [facility]–1983 Last Admin: 10/13/16 03:11 Dose: 100 mls/hr Latanoprost (Xalatan 0.005%*) 1 drop BOTH EYES QPM FOR[facility], [facility]1983 Metoprolol Tartrate (Lopressor Tab*) 25 mg PO BID [facility], [facility] Last Admin: 10/13/16 10:37 Dose: 25 mg Omeprazole (Prilosec Cap*) 20 mg PO DAILY [facility] Last Admin: 10/13/16 10:36 Dose: 20 mg Ondansetron HCl (Zofran Inj*) 4 mg IV Q6H PRN PRN Reason: NAUSEA Rivaroxaban (Xarelto(*)) 15 mg PO DAILY [facility], [facility] Last Admin: 10/13/16 10:36 Dose: 15 mg Valsartan (Diovan Tab*) 160 mg PO BEDTIME FOR[facility] Last Admin: 10/12/16 21:48 Dose: 160 mg Vital Signs 10/12/16 10/12/16 10/12/16 19:00 19:35 20:22 Temperature 98.5 F Pulse Rate 60 59 60 Respiratory 17 18 16 Rate Blood Pressure 179/94 195/71 (mmHg) O2 Sat by Pulse 98 95 98 Oximetry 10/12/16 10/12/16 10/12/16 20:25 23:39 23:42 Temperature 98.5 F 98.2 F Pulse Rate 60 60 60 Respiratory 16 16 17 Rate Blood Pressure 195/71 139/67 118/65 (mmHg) O2 Sat by Pulse 98 97 96 Oximetry 10/13/16 10/13/16 10/13/16 03:24 07:56 08:00 Temperature 98.1 F 98.2 F Pulse Rate 60 60 Respiratory 16 16 Rate Blood Pressure 127/62 167/70 (mmHg) O2 Sat by Pulse 93 97 Oximetry 10/13/16 10/13/16 09:59 12:23 Temperature Pulse Rate 59 61 Respiratory Rate Blood Pressure 119/53 184/68 (mmHg) O2 Sat by Pulse 98 100 Oximetry Oxygen Devices in Use Now: None Appearance: Elderly female lying in bed, NAD Eyes: No Scleral Icterus Ears/Nose/Mouth/Throat: Mucous Membranes Moist Respiratory: Symmetrical Chest Expansion and Respiratory Effort, Clear to Auscultation Cardiovascular: NL Sounds; No Murmurs; No JVD, RRR, No Edema Abdominal: NL Sounds; No Tenderness; No Distention Extremities: No Clubbing, Cyanosis Skin: No Rash or Ulcers, No Nodules or Sclerosis Neurological: Alert and Oriented x 3, - Result Diagrams: 10/13/16 06:33 10/13/16 06:33 Additional Lab and Data: Lab Results 10/12/16 10/12/16 10/12/16 Range/Units 14:43 14:43 14:43 WBC 7.1 (3.5-10.8) 10^3/ul RBC 4.13 (4.0-5.4) 10^6/ul Hgb 11.3 L (12.0-16.0) g/dl Hct 35 (35-47) % MCV 84 (80-97) fL MCH 27 (27-31) pg MCHC 33 (31-36) g/dl RDW 20 H (10.5-15) % Plt Count 285 (150-450) 10^3/ul MPV 9 (7.4-10.4) um3 Neut % (Auto) 72.4 (38-83) % Lymph % (Auto) 14.2 L (25-47) % Green % (Auto) 7.1 (1-9) % Eos % (Auto) 5.1 (0-6) % Baso % (Auto) 1.2 (0-2) % Absolute Neuts (auto) 5.1 (1.5-7.7) 10^3/ul Absolute Lymphs (auto) 1.0 (1.0-4.8) 10^3/ul Absolute Monos (auto) 0.5 (0-0.8) 10^3/ul Absolute Eos (auto) 0.4 (0-0.6) 10^3/ul Absolute Basos (auto) 0.1 (0-0.2) 10^3/ul Absolute Nucleated RBC 0 10^3/ul Nucleated RBC % 0 INR (Anticoag Therapy) 1.98 H (0.89-1.11) APTT 40.2 H (26.0-36.3) seconds Sodium 131 L (133-145) mmol/L Potassium 4.2 (3.5-5.0) mmol/L Chloride 99 L (101-111) mmol/L Carbon Dioxide 26 (22-32) mmol/L Anion Gap 6 (2-11) mmol/L BUN 19 (6-24) mg/dL Creatinine 0.89 (0.51-0.95) mg/dL Est GFR ( Amer) 77.9 (>60) Est GFR (Non-Af Amer) 60.6 (>60) BUN/Creatinine Ratio 21.3 H (8-20) Glucose 100 (70-100) mg/dL Lactic Acid (0.5-2.0) mmol/L Calcium 9.3 (8.6-10.3) mg/dL Magnesium 1.9 (1.9-2.7) mg/dL Total Bilirubin 0.40 (0.2-1.0) mg/dL AST 19 (13-39) U/L ALT 16 (7-52) U/L Alkaline Phosphatase 95 (34-104) U/L Total Creatine Kinase 23 (10-223) U/L CK-MB (CK-2) 1.8 (0.6-6.3) ng/mL Troponin I 0.01 (<0.04) ng/mL C-Reactive Protein 6.84 H (< 5.00) mg/L B-Natriuretic Peptide ( - 100) pg/mL Total Protein 7.3 (6.4-8.9) g/dL Albumin 3.8 (3.2-5.2) g/dL Globulin 3.5 (2-4) g/dL Albumin/Globulin Ratio 1.1 (1-3) Lipase 41 (11.0-82.0) U/L TSH 2.24 (0.34-5.60) mcIU/mL Urine Color Urine Appearance Urine pH (5-9) Ur Specific Mcclelland (1.010-1.030) Urine Protein (Negative) Urine Ketones (Negative) Urine Blood (Negative) Urine Nitrate (Negative) Urine Bilirubin (Negative) Urine Urobilinogen (Negative) Ur Leukocyte Esterase (Negative) Urine WBC (Auto) (Absent) Urine RBC (Auto) (Absent) Ur Squamous Epith Cells (Absent) Urine Bacteria (Absent) Urine Glucose (Negative) Urine Ascorbic Acid (Negative) 10/12/16 10/12/16 10/12/16 Range/Units 14:43 15:35 17:35 WBC (3.5-10.8) 10^3/ul RBC (4.0-5.4) 10^6/ul Hgb (12.0-16.0) g/dl Hct (35-47) % MCV (80-97) fL MCH (27-31) pg MCHC (31-36) g/dl RDW (10.5-15) % Plt Count (150-450) 10^3/ul MPV (7.4-10.4) um3 Neut % (Auto) (38-83) % Lymph % (Auto) (25-47) % Green % (Auto) (1-9) % Eos % (Auto) (0-6) % Baso % (Auto) (0-2) % Absolute Neuts (auto) (1.5-7.7) 10^3/ul Absolute Lymphs (auto) (1.0-4.8) 10^3/ul Absolute Monos (auto) (0-0.8) 10^3/ul Absolute Eos (auto) (0-0.6) 10^3/ul Absolute Basos (auto) (0-0.2) 10^3/ul Absolute Nucleated RBC 10^3/ul Nucleated RBC % INR (Anticoag Therapy) (0.89-1.11) APTT (26.0-36.3) seconds Sodium (133-145) mmol/L Potassium (3.5-5.0) mmol/L Chloride (101-111) mmol/L Carbon Dioxide (22-32) mmol/L Anion Gap (2-11) mmol/L BUN (6-24) mg/dL Creatinine (0.51-0.95) mg/dL Est GFR ( Amer) (>60) Est GFR (Non-Af Amer) (>60) BUN/Creatinine Ratio (8-20) Glucose (70-100) mg/dL Lactic Acid 0.8 (0.5-2.0) mmol/L Calcium (8.6-10.3) mg/dL Magnesium (1.9-2.7) mg/dL Total Bilirubin (0.2-1.0) mg/dL AST (13-39) U/L ALT (7-52) U/L Alkaline Phosphatase (34-104) U/L Total Creatine Kinase (10-223) U/L CK-MB (CK-2) (0.6-6.3) ng/mL Troponin I (<0.04) ng/mL C-Reactive Protein (< 5.00) mg/L B-Natriuretic Peptide 199 H ( - 100) pg/mL Total Protein (6.4-8.9) g/dL Albumin (3.2-5.2) g/dL Globulin (2-4) g/dL Albumin/Globulin Ratio (1-3) Lipase (11.0-82.0) U/L TSH (0.34-5.60) mcIU/mL Urine Color Yellow Urine Appearance Cloudy Urine pH 7.0 (5-9) Ur Specific Mcclelland 1.009 L (1.010-1.030) Urine Protein Negative (Negative) Urine Ketones Negative (Negative) Urine Blood Negative (Negative) Urine Nitrate Positive H (Negative) Urine Bilirubin Negative (Negative) Urine Urobilinogen Negative (Negative) Ur Leukocyte Esterase 2+ H (Negative) Urine WBC (Auto) 1+(6-10/hpf) H (Absent) Urine RBC (Auto) 1+(3-5/hpf) H (Absent) Ur Squamous Epith Cells Present H (Absent) Urine Bacteria 1+ H (Absent) Urine Glucose Negative (Negative) Urine Ascorbic Acid * H (Negative) Assess/Plan/Problems-Billing Ms Luz is an 81 yo F with a h/o HTN, CAD, afib and past h/o TIA who presented to the ER for c/o weakness and lightheadedness and was found to have a UTI. - Patient Problems (1) UTI (urinary tract infection) Current Visit: Yes Status: Acute Comment: Urine culture pending. Will continue on ceftriaxone 1g IV daily. She states overall she is feeling better than when she presented to the ER. (2) Weakness Current Visit: Yes Status: Acute Code(s): R53.1 - WEAKNESS SNOMED Code(s) : 87638134 Comment: Likely secondary to UTI. PT saw the patient today but she did not want to walk. PT feels that she will need skilled rehab upon d/c however she just left there last week. WIll have PT re-eval tomorrow-she may need to go back. I have asked nursing to walk the patient tonight. (3) Afib Current Visit: Yes Status: Acute Code(s): I48.91 - UNSPECIFIED ATRIAL FIBRILLATION SNOMED Code(s): 67537068 Comment: HR is controlled and sounds regular on exam. Continue xarelto, amiodarone and metoprolol. (4) Hypertension Current Visit: Yes Status: Acute Code(s): I10 - ESSENTIAL (PRIMARY) HYPERTENSION SNOMED Code(s): 61028068 Comment: BP has fluctuated quite a bit. Monitor for now and continue valsartan and metoprolol. (5) DVT prophylaxis Current Visit: Yes Status: Acute Code(s): SQV6687 - SNOMED Code(s): 362664235 Comment: xarelto (6) DNR (do not resuscitate) Current Visit: Yes Status: Acute
[2016-10-13] MEDS: cefTRIAXone VIAL(*) 1,000 MG in NS 0.9% 50 ML* 50 ML IVPB SCH (18:24)
[2016-10-13] MEDS: Brimonid/Timolol 0.2/0.5%(NF) 10 ML OPHTH.SOLN BOTH EYES SCH ×2 (18:29→20:47)
[2016-10-13] MEDS: Latanoprost 0.005%* 2.5 ml BTL BOTH EYES SCH (18:31)
[2016-10-13] MEDS: Atorvastatin* 20 MG TAB PO SCH (20:47)
[2016-10-13] MEDS: Valsartan TAB* 160 MG PO SCH (20:47)
[2016-10-14] MEDS: Metoprolol Tartrate TAB* 25 MG PO SCH ×2 (09:03→21:35)
[2016-10-14] MEDS: Omeprazole CAP* 20 MG PO SCH (09:04)
[2016-10-14] MEDS: Amiodarone TAB* 200 MG PO SCH (09:04)
[2016-10-14] MEDS: Rivaroxaban TAB(*) 15 MG PO SCH (09:04)
[2016-10-14] MEDS: Aspirin EC Low Dose* 81 MG TAB.EC PO SCH (09:04)
[2016-10-14] MEDS: Brimonid/Timolol 0.2/0.5%(NF) 10 ML OPHTH.SOLN BOTH EYES SCH ×2 (09:05→21:39)
[2016-10-14] MEDS ORDERED: Senna TAB PO PRN (12:28)
[2016-10-14] MEDS ORDERED: Polyethylene Glycol 3350* 17 GM PACKET PO PRN (12:28)
[2016-10-14] MEDS: NS 0.9% 1000 ML* 1,000 ML IV SCH (13:55)
[2016-10-14] MEDS ORDERED: Docusate CAP* 100 MG ONE (15:53)
[2016-10-14] MEDS: Docusate CAP* 100 MG PO PRN ×2 (15:54→21:37)
[2016-10-14] MEDS: Latanoprost 0.005%* 2.5 ml BTL BOTH EYES SCH (17:31)
[2016-10-14] MEDS: cefTRIAXone VIAL(*) 1,000 MG in NS 0.9% 50 ML* 50 ML IVPB SCH (18:33)
--- NOTE | 2016-10-14 21:21 | PN ---
Subjective Date of Service: 10/14/16 Interval History: Patient feeling better Objective Active Medications: Acetaminophen (Tylenol Tab*) 650 mg PO Q4H PRN PRN Reason: FEVER/PAIN Last Admin: 10/12/16 19:41 Dose: 650 mg Amiodarone HCl (Cordarone Tab*) 200 mg PO DAILY [facility] Last Admin: 10/14/16 09:04 Dose: 200 mg Aspirin (Aspirin Ec Low Dose*) 81 mg PO DAILY [facility] Last Admin: 10/14/16 09:04 Dose: 81 mg Atorvastatin Calcium (Lipitor*) 20 mg PO 2100 [facility] Last Admin: 10/13/16 20:47 Dose: 20 mg Brimonidine/Timolol (Combigan 0.2/0.5% (Nf)) 1 drop BOTH EYES BID [facility] Last Admin: 10/14/16 09:05 Dose: 1 drop Docusate Sodium (Colace Cap*) 100 mg PO BID PRN PRN Reason: CONSTIPATION Last Admin: 10/14/16 15:54 Dose: 100 mg Ceftriaxone Sodium 1,000 mg/ (Sodium Chloride) 50 mls @ 200 mls/hr IVPB Q24H [facility] Last Admin: 10/14/16 18:33 Dose: 200 mls/hr Sodium Chloride (Ns 0.9% 1000 Ml*) 1,000 mls @ 100 mls/hr IV PER RATE [facility] Last Admin: 10/14/16 13:55 Dose: 100 mls/hr Latanoprost (Xalatan 0.005%*) 1 drop BOTH EYES 2130 [facility] Metoprolol Tartrate (Lopressor Tab*) 25 mg PO BID [facility] Last Admin: 10/14/16 09:03 Dose: 25 mg Omeprazole (Prilosec Cap*) 20 mg PO DAILY [facility] Last Admin: 10/14/16 09:04 Dose: 20 mg Ondansetron HCl (Zofran Inj*) 4 mg IV Q6H PRN PRN Reason: NAUSEA Polyethylene Glycol/Electrolytes (Miralax*) 17 gm PO DAILY PRN PRN Reason: CONSTIPATION Rivaroxaban (Xarelto(*)) 15 mg PO DAILY [facility] Last Admin: 10/14/16 09:04 Dose: 15 mg Senna (Senokot Tab*) 2 tab PO BEDTIME PRN PRN Reason: CONSTIPATION Valsartan (Diovan Tab*) 160 mg PO BEDTIME [facility] Last Admin: 10/13/16 20:47 Dose: 160 mg Vital Signs 10/13/16 10/13/16 10/14/16 22:01 23:53 03:54 Temperature 98.0 F 97.9 F Pulse Rate 59 60 Respiratory 16 18 16 Rate Blood Pressure 126/53 162/70 (mmHg) O2 Sat by Pulse 96 97 Oximetry 10/14/16 10/14/16 10/14/16 04:30 07:27 08:00 Temperature 97.7 F Pulse Rate 59 59 Respiratory 16 16 Rate Blood Pressure 159/71 214/82 (mmHg) O2 Sat by Pulse 96 98 Oximetry 10/14/16 10/14/16 10/14/16 08:45 08:54 13:56 Temperature 97.7 F Pulse Rate 60 60 Respiratory 16 Rate Blood Pressure 198/100 185/81 (mmHg) O2 Sat by Pulse 98 99 Oximetry 10/14/16 10/14/16 16:28 16:31 Temperature 98.0 F Pulse Rate 60 Respiratory Rate Blood Pressure 209/86 205/84 (mmHg) O2 Sat by Pulse 99 Oximetry Oxygen Devices in Use Now: None Appearance: WD/WN elderly woman lying in bed in NAD Eyes: No Scleral Icterus Ears/Nose/Mouth/Throat: Mucous Membranes Moist Neck: NL Appearance and Movements; NL JVP, No Thyroid Enlargement, Masses Respiratory: Clear to Auscultation Cardiovascular: - - S1S2 paula Abdominal: NL Sounds; No Tenderness; No Distention, No Hepatosplenomegaly Lymphatic: No Cervical Adenopathy Extremities: No Edema, No Clubbing, Cyanosis Skin: No Rash or Ulcers Neurological: Alert and Oriented x 3 Result Diagrams: 10/13/16 06:33 10/13/16 06:33 Additional Lab and Data: Lab Results 10/12/16 10/12/16 10/12/16 Range/Units 14:43 14:43 14:43 WBC 7.1 (3.5-10.8) 10^3/ul RBC 4.13 (4.0-5.4) 10^6/ul Hgb 11.3 L (12.0-16.0) g/dl Hct 35 (35-47) % MCV 84 (80-97) fL MCH 27 (27-31) pg MCHC 33 (31-36) g/dl RDW 20 H (10.5-15) % Plt Count 285 (150-450) 10^3/ul MPV 9 (7.4-10.4) um3 Neut % (Auto) 72.4 (38-83) % Lymph % (Auto) 14.2 L (25-47) % [place] % (Auto) 7.1 (1-9) % Eos % (Auto) 5.1 (0-6) % Baso % (Auto) 1.2 (0-2) % Absolute Neuts (auto) 5.1 (1.5-7.7) 10^3/ul Absolute Lymphs (auto) 1.0 (1.0-4.8) 10^3/ul Absolute Monos (auto) 0.5 (0-0.8) 10^3/ul Absolute Eos (auto) 0.4 (0-0.6) 10^3/ul Absolute Basos (auto) 0.1 (0-0.2) 10^3/ul Absolute Nucleated RBC 0 10^3/ul Nucleated RBC % 0 INR (Anticoag Therapy) 1.98 H (0.89-1.11) APTT 40.2 H (26.0-36.3) seconds Sodium 131 L (133-145) mmol/L Potassium 4.2 (3.5-5.0) mmol/L Chloride 99 L (101-111) mmol/L Carbon Dioxide 26 (22-32) mmol/L Anion Gap 6 (2-11) mmol/L BUN 19 (6-24) mg/dL Creatinine 0.89 (0.51-0.95) mg/dL Est GFR ( Amer) 77.9 (>60) Est GFR (Non-Af Amer) 60.6 (>60) BUN/Creatinine Ratio 21.3 H (8-20) Glucose 100 (70-100) mg/dL Lactic Acid (0.5-2.0) mmol/L Calcium 9.3 (8.6-10.3) mg/dL Magnesium 1.9 (1.9-2.7) mg/dL Total Bilirubin 0.40 (0.2-1.0) mg/dL AST 19 (13-39) U/L ALT 16 (7-52) U/L Alkaline Phosphatase 95 (34-104) U/L Total Creatine Kinase 23 (10-223) U/L CK-MB (CK-2) 1.8 (0.6-6.3) ng/mL Troponin I 0.01 (<0.04) ng/mL C-Reactive Protein 6.84 H (< 5.00) mg/L B-Natriuretic Peptide ( - 100) pg/mL Total Protein 7.3 (6.4-8.9) g/dL Albumin 3.8 (3.2-5.2) g/dL Globulin 3.5 (2-4) g/dL Albumin/Globulin Ratio 1.1 (1-3) Lipase 41 (11.0-82.0) U/L TSH 2.24 (0.34-5.60) mcIU/mL Urine Color Urine Appearance Urine pH (5-9) Ur Specific [place] (1.010-1.030) Urine Protein (Negative) Urine Ketones (Negative) Urine Blood (Negative) Urine Nitrate (Negative) Urine Bilirubin (Negative) Urine Urobilinogen (Negative) Ur Leukocyte Esterase (Negative) Urine WBC (Auto) (Absent) Urine RBC (Auto) (Absent) Ur Squamous Epith Cells (Absent) Urine Bacteria (Absent) Urine Glucose (Negative) Urine Ascorbic Acid (Negative) 10/12/16 10/12/16 10/12/16 Range/Units 14:43 15:35 17:35 WBC (3.5-10.8) 10^3/ul RBC (4.0-5.4) 10^6/ul Hgb (12.0-16.0) g/dl Hct (35-47) % MCV (80-97) fL MCH (27-31) pg MCHC (31-36) g/dl RDW (10.5-15) % Plt Count (150-450) 10^3/ul MPV (7.4-10.4) um3 Neut % (Auto) (38-83) % Lymph % (Auto) (25-47) % [place] % (Auto) (1-9) % Eos % (Auto) (0-6) % Baso % (Auto) (0-2) % Absolute Neuts (auto) (1.5-7.7) 10^3/ul Absolute Lymphs (auto) (1.0-4.8) 10^3/ul Absolute Monos (auto) (0-0.8) 10^3/ul Absolute Eos (auto) (0-0.6) 10^3/ul Absolute Basos (auto) (0-0.2) 10^3/ul Absolute Nucleated RBC 10^3/ul Nucleated RBC % INR (Anticoag Therapy) (0.89-1.11) APTT (26.0-36.3) seconds Sodium (133-145) mmol/L Potassium (3.5-5.0) mmol/L Chloride (101-111) mmol/L Carbon Dioxide (22-32) mmol/L Anion Gap (2-11) mmol/L BUN (6-24) mg/dL Creatinine (0.51-0.95) mg/dL Est GFR ( Amer) (>60) Est GFR (Non-Af Amer) (>60) BUN/Creatinine Ratio (8-20) Glucose (70-100) mg/dL Lactic Acid 0.8 (0.5-2.0) mmol/L Calcium (8.6-10.3) mg/dL Magnesium (1.9-2.7) mg/dL Total Bilirubin (0.2-1.0) mg/dL AST (13-39) U/L ALT (7-52) U/L Alkaline Phosphatase (34-104) U/L Total Creatine Kinase (10-223) U/L CK-MB (CK-2) (0.6-6.3) ng/mL Troponin I (<0.04) ng/mL C-Reactive Protein (< 5.00) mg/L B-Natriuretic Peptide 199 H ( - 100) pg/mL Total Protein (6.4-8.9) g/dL Albumin (3.2-5.2) g/dL Globulin (2-4) g/dL Albumin/Globulin Ratio (1-3) Lipase (11.0-82.0) U/L TSH (0.34-5.60) mcIU/mL Urine Color Yellow Urine Appearance Cloudy Urine pH 7.0 (5-9) Ur Specific [place] 1.009 L (1.010-1.030) Urine Protein Negative (Negative) Urine Ketones Negative (Negative) Urine Blood Negative (Negative) Urine Nitrate Positive H (Negative) Urine Bilirubin Negative (Negative) Urine Urobilinogen Negative (Negative) Ur Leukocyte Esterase 2+ H (Negative) Urine WBC (Auto) 1+(6-10/hpf) H (Absent) Urine RBC (Auto) 1+(3-5/hpf) H (Absent) Ur Squamous Epith Cells Present H (Absent) Urine Bacteria 1+ H (Absent) Urine Glucose Negative (Negative) Urine Ascorbic Acid * H (Negative) Assess/Plan/Problems-Billing Ms Luz is an 81 yo F with a h/o HTN, CAD, afib and past h/o TIA who presented to the ER for c/o weakness and lightheadedness and was found to have a UTI. - Patient Problems (1) UTI (urinary tract infection) Current Visit: Yes Status: Acute Comment: Urine culture shows mixed cecelia.. Will continue on ceftriaxone 1g IV daily. Feels better though. (2) Afib Current Visit: Yes Status: Acute Code(s): I48.91 - UNSPECIFIED ATRIAL FIBRILLATION SNOMED Code(s): 20619683 Comment: HR adequately controlled. Continue xarelto, amiodarone and metoprolol. (3) Hypertension Current Visit: Yes Status: Acute Code(s): I10 - ESSENTIAL (PRIMARY) HYPERTENSION SNOMED Code(s): 64543479 Comment: BP quite high. Add Amlodipine. (4) Weakness Current Visit: Yes Status: Acute Code(s): R53.1 - WEAKNESS SNOMED Code(s) : 94085214 Comment: Likely secondary to UTI. Patient did better today with PT. (5) DVT prophylaxis Current Visit: Yes Status: Acute Code(s): HHJ7094 - SNOMED Code(s): 312879573 Comment: On xarelto (6) DNR (do not resuscitate) Current Visit: Yes Status: Acute
[2016-10-14] MEDS: Atorvastatin* 20 MG TAB PO SCH (21:35)
[2016-10-14] MEDS: Valsartan TAB* 160 MG PO SCH (21:36)
[2016-10-14] MEDS: Acetaminophen TAB* 325 MG PO PRN (21:36)
[2016-10-14] MEDS: amLODIPine TAB* 5 MG PO SCH (22:02)
[2016-10-15] MEDS: NS 0.9% 1000 ML* 1,000 ML IV SCH ×3 (00:13→22:23)
[2016-10-15] MEDS: Brimonid/Timolol 0.2/0.5%(NF) 10 ML OPHTH.SOLN BOTH EYES SCH ×2 (08:33→21:10)
[2016-10-15] MEDS: amLODIPine TAB* 5 MG PO SCH (08:34)
[2016-10-15] MEDS: Aspirin EC Low Dose* 81 MG TAB.EC PO SCH (08:34)
[2016-10-15] MEDS: Metoprolol Tartrate TAB* 25 MG PO SCH ×2 (08:34→20:01)
[2016-10-15] MEDS: Omeprazole CAP* 20 MG PO SCH (08:34)
[2016-10-15] MEDS: Amiodarone TAB* 200 MG PO SCH (08:34)
[2016-10-15] MEDS: Rivaroxaban TAB(*) 15 MG PO SCH (09:06)
--- NOTE | 2016-10-15 17:20 | PN ---
Subjective Date of Service: 10/15/16 Interval History: Patient still feels weak although did walk more today. Objective Active Medications: Acetaminophen (Tylenol Tab*) 650 mg PO Q4H PRN PRN Reason: FEVER/PAIN Last Admin: 10/14/16 21:36 Dose: 650 mg Amiodarone HCl (Cordarone Tab*) 200 mg PO DAILY [facility] Last Admin: 10/15/16 08:34 Dose: 200 mg Amlodipine Besylate (Norvasc Tab*) 5 mg PO DAILY [facility] Last Admin: 10/15/16 08:34 Dose: 5 mg Aspirin (Aspirin Ec Low Dose*) 81 mg PO DAILY [facility] Last Admin: 10/15/16 08:34 Dose: 81 mg Atorvastatin Calcium (Lipitor*) 20 mg PO 2100 [facility] Last Admin: 10/14/16 21:35 Dose: 20 mg Brimonidine/Timolol (Combigan 0.2/0.5% (Nf)) 1 drop BOTH EYES BID [facility] Last Admin: 10/15/16 08:33 Dose: 1 drop Citalopram Hydrobromide (Celexa Tab*) 20 mg PO DAILY [facility] Docusate Sodium (Colace Cap*) 100 mg PO BID PRN PRN Reason: CONSTIPATION Last Admin: 10/14/16 21:37 Dose: 100 mg Ceftriaxone Sodium 1,000 mg/ (Sodium Chloride) 50 mls @ 200 mls/hr IVPB Q24H [facility] Last Admin: 10/14/16 18:33 Dose: 200 mls/hr Sodium Chloride (Ns 0.9% 1000 Ml*) 1,000 mls @ 100 mls/hr IV PER RATE [facility] Last Admin: 10/15/16 11:03 Dose: 100 mls/hr Latanoprost (Xalatan 0.005%*) 1 drop BOTH EYES 2130 [facility] Metoprolol Tartrate (Lopressor Tab*) 25 mg PO BID [facility] Last Admin: 10/15/16 08:34 Dose: 25 mg Omeprazole (Prilosec Cap*) 20 mg PO DAILY [facility] Last Admin: 10/15/16 08:34 Dose: 20 mg Ondansetron HCl (Zofran Inj*) 4 mg IV Q6H PRN PRN Reason: NAUSEA Polyethylene Glycol/Electrolytes (Miralax*) 17 gm PO DAILY PRN PRN Reason: CONSTIPATION Rivaroxaban (Xarelto(*)) 15 mg PO DAILY [facility] Last Admin: 10/15/16 09:06 Dose: 15 mg Senna (Senokot Tab*) 2 tab PO BEDTIME PRN PRN Reason: CONSTIPATION Valsartan (Diovan Tab*) 160 mg PO BEDTIME [facility] Last Admin: 10/14/16 21:36 Dose: 160 mg Vital Signs 10/14/16 10/14/16 10/14/16 20:00 20:39 23:29 Temperature 98.2 F 98.1 F Pulse Rate 60 60 Respiratory 16 16 Rate Blood Pressure 189/79 97/44 (mmHg) O2 Sat by Pulse 97 98 Oximetry 10/15/16 10/15/16 10/15/16 00:32 03:15 07:25 Temperature 97.7 F 98.0 F Pulse Rate 60 59 Respiratory 16 Rate Blood Pressure 153/69 186/76 (mmHg) O2 Sat by Pulse 98 96 97 Oximetry 10/15/16 10/15/16 08:00 11:09 Temperature 98.0 F Pulse Rate 60 Respiratory 16 Rate Blood Pressure 103/52 (mmHg) O2 Sat by Pulse 96 Oximetry Oxygen Devices in Use Now: None Appearance: Elderly woman lying in bed in NAD Ears/Nose/Mouth/Throat: Mucous Membranes Moist Neck: No Thyroid Enlargement, Masses Respiratory: Clear to Auscultation Cardiovascular: - - S1S2 paula Abdominal: NL Sounds; No Tenderness; No Distention, No Hepatosplenomegaly Lymphatic: No Cervical Adenopathy Extremities: No Clubbing, Cyanosis Skin: No Rash or Ulcers Neurological: Alert and Oriented x 3 Result Diagrams: 10/13/16 06:33 10/13/16 06:33 Additional Lab and Data: Lab Results 10/12/16 10/12/16 10/12/16 Range/Units 14:43 14:43 14:43 WBC 7.1 (3.5-10.8) 10^3/ul RBC 4.13 (4.0-5.4) 10^6/ul Hgb 11.3 L (12.0-16.0) g/dl Hct 35 (35-47) % MCV 84 (80-97) fL MCH 27 (27-31) pg MCHC 33 (31-36) g/dl RDW 20 H (10.5-15) % Plt Count 285 (150-450) 10^3/ul MPV 9 (7.4-10.4) um3 Neut % (Auto) 72.4 (38-83) % Lymph % (Auto) 14.2 L (25-47) % [place] % (Auto) 7.1 (1-9) % Eos % (Auto) 5.1 (0-6) % Baso % (Auto) 1.2 (0-2) % Absolute Neuts (auto) 5.1 (1.5-7.7) 10^3/ul Absolute Lymphs (auto) 1.0 (1.0-4.8) 10^3/ul Absolute Monos (auto) 0.5 (0-0.8) 10^3/ul Absolute Eos (auto) 0.4 (0-0.6) 10^3/ul Absolute Basos (auto) 0.1 (0-0.2) 10^3/ul Absolute Nucleated RBC 0 10^3/ul Nucleated RBC % 0 INR (Anticoag Therapy) 1.98 H (0.89-1.11) APTT 40.2 H (26.0-36.3) seconds Sodium 131 L (133-145) mmol/L Potassium 4.2 (3.5-5.0) mmol/L Chloride 99 L (101-111) mmol/L Carbon Dioxide 26 (22-32) mmol/L Anion Gap 6 (2-11) mmol/L BUN 19 (6-24) mg/dL Creatinine 0.89 (0.51-0.95) mg/dL Est GFR ( Amer) 77.9 (>60) Est GFR (Non-Af Amer) 60.6 (>60) BUN/Creatinine Ratio 21.3 H (8-20) Glucose 100 (70-100) mg/dL Lactic Acid (0.5-2.0) mmol/L Calcium 9.3 (8.6-10.3) mg/dL Magnesium 1.9 (1.9-2.7) mg/dL Total Bilirubin 0.40 (0.2-1.0) mg/dL AST 19 (13-39) U/L ALT 16 (7-52) U/L Alkaline Phosphatase 95 (34-104) U/L Total Creatine Kinase 23 (10-223) U/L CK-MB (CK-2) 1.8 (0.6-6.3) ng/mL Troponin I 0.01 (<0.04) ng/mL C-Reactive Protein 6.84 H (< 5.00) mg/L B-Natriuretic Peptide ( - 100) pg/mL Total Protein 7.3 (6.4-8.9) g/dL Albumin 3.8 (3.2-5.2) g/dL Globulin 3.5 (2-4) g/dL Albumin/Globulin Ratio 1.1 (1-3) Lipase 41 (11.0-82.0) U/L TSH 2.24 (0.34-5.60) mcIU/mL Urine Color Urine Appearance Urine pH (5-9) Ur Specific [place] (1.010-1.030) Urine Protein (Negative) Urine Ketones (Negative) Urine Blood (Negative) Urine Nitrate (Negative) Urine Bilirubin (Negative) Urine Urobilinogen (Negative) Ur Leukocyte Esterase (Negative) Urine WBC (Auto) (Absent) Urine RBC (Auto) (Absent) Ur Squamous Epith Cells (Absent) Urine Bacteria (Absent) Urine Glucose (Negative) Urine Ascorbic Acid (Negative) 10/12/16 10/12/16 10/12/16 Range/Units 14:43 15:35 17:35 WBC (3.5-10.8) 10^3/ul RBC (4.0-5.4) 10^6/ul Hgb (12.0-16.0) g/dl Hct (35-47) % MCV (80-97) fL MCH (27-31) pg MCHC (31-36) g/dl RDW (10.5-15) % Plt Count (150-450) 10^3/ul MPV (7.4-10.4) um3 Neut % (Auto) (38-83) % Lymph % (Auto) (25-47) % [place] % (Auto) (1-9) % Eos % (Auto) (0-6) % Baso % (Auto) (0-2) % Absolute Neuts (auto) (1.5-7.7) 10^3/ul Absolute Lymphs (auto) (1.0-4.8) 10^3/ul Absolute Monos (auto) (0-0.8) 10^3/ul Absolute Eos (auto) (0-0.6) 10^3/ul Absolute Basos (auto) (0-0.2) 10^3/ul Absolute Nucleated RBC 10^3/ul Nucleated RBC % INR (Anticoag Therapy) (0.89-1.11) APTT (26.0-36.3) seconds Sodium (133-145) mmol/L Potassium (3.5-5.0) mmol/L Chloride (101-111) mmol/L Carbon Dioxide (22-32) mmol/L Anion Gap (2-11) mmol/L BUN (6-24) mg/dL Creatinine (0.51-0.95) mg/dL Est GFR ( Amer) (>60) Est GFR (Non-Af Amer) (>60) BUN/Creatinine Ratio (8-20) Glucose (70-100) mg/dL Lactic Acid 0.8 (0.5-2.0) mmol/L Calcium (8.6-10.3) mg/dL Magnesium (1.9-2.7) mg/dL Total Bilirubin (0.2-1.0) mg/dL AST (13-39) U/L ALT (7-52) U/L Alkaline Phosphatase (34-104) U/L Total Creatine Kinase (10-223) U/L CK-MB (CK-2) (0.6-6.3) ng/mL Troponin I (<0.04) ng/mL C-Reactive Protein (< 5.00) mg/L B-Natriuretic Peptide 199 H ( - 100) pg/mL Total Protein (6.4-8.9) g/dL Albumin (3.2-5.2) g/dL Globulin (2-4) g/dL Albumin/Globulin Ratio (1-3) Lipase (11.0-82.0) U/L TSH (0.34-5.60) mcIU/mL Urine Color Yellow Urine Appearance Cloudy Urine pH 7.0 (5-9) Ur Specific [place] 1.009 L (1.010-1.030) Urine Protein Negative (Negative) Urine Ketones Negative (Negative) Urine Blood Negative (Negative) Urine Nitrate Positive H (Negative) Urine Bilirubin Negative (Negative) Urine Urobilinogen Negative (Negative) Ur Leukocyte Esterase 2+ H (Negative) Urine WBC (Auto) 1+(6-10/hpf) H (Absent) Urine RBC (Auto) 1+(3-5/hpf) H (Absent) Ur Squamous Epith Cells Present H (Absent) Urine Bacteria 1+ H (Absent) Urine Glucose Negative (Negative) Urine Ascorbic Acid * H (Negative) Assess/Plan/Problems-Billing Ms Luz is an 81 yo F with a h/o HTN, CAD, afib and past h/o TIA who presented to the ER for c/o weakness and lightheadedness and was found to have a UTI. - Patient Problems (1) UTI (urinary tract infection) Current Visit: Yes Status: Acute Comment: Although culture negative continue on ceftriaxone 1g IV daily for now.She feels better. (2) Afib Current Visit: Yes Status: Acute Code(s): I48.91 - UNSPECIFIED ATRIAL FIBRILLATION SNOMED Code(s): 37440100 Comment: HR adequately controlled. Continue xarelto, amiodarone and metoprolol. (3) Hypertension Current Visit: Yes Status: Acute Code(s): I10 - ESSENTIAL (PRIMARY) HYPERTENSION SNOMED Code(s): 71108703 Comment: BP better but significantly better at night. May need to retime dosing of antihypertensives. (4) Weakness Current Visit: Yes Status: Acute Code(s): R53.1 - WEAKNESS SNOMED Code(s) : 04709876 Comment: May be secondary to UTI, but patient still very weak. ?? Depression. Start Celexa (5) DVT prophylaxis Current Visit: Yes Status: Acute Code(s): BQU2730 - SNOMED Code(s): 577407022 Comment: On xarelto (6) DNR (do not resuscitate) Current Visit: Yes Status: Acute
[2016-10-15] MEDS: cefTRIAXone VIAL(*) 1,000 MG in NS 0.9% 50 ML* 50 ML IVPB SCH (17:39)
[2016-10-15] MEDS: Valsartan TAB* 160 MG PO SCH (20:01)
[2016-10-15] MEDS: Atorvastatin* 20 MG TAB PO SCH (20:01)
[2016-10-15] MEDS: Latanoprost 0.005%* 2.5 ml BTL BOTH EYES SCH (21:10)
[2016-10-15] MEDS: Acetaminophen TAB* 325 MG PO PRN (21:18)
[2016-10-16] MEDS: Omeprazole CAP* 20 MG PO SCH (07:43)
[2016-10-16] MEDS: Amiodarone TAB* 200 MG PO SCH (07:43)
[2016-10-16] MEDS: Citalopram TAB* 20 MG PO SCH (07:43)
[2016-10-16] MEDS: Brimonid/Timolol 0.2/0.5%(NF) 10 ML OPHTH.SOLN BOTH EYES SCH ×2 (07:43→20:53)
[2016-10-16] MEDS: Rivaroxaban TAB(*) 15 MG PO SCH (07:43)
[2016-10-16] MEDS: Metoprolol Tartrate TAB* 25 MG PO SCH ×2 (07:43→20:52)
[2016-10-16] MEDS: amLODIPine TAB* 5 MG PO SCH (07:43)
[2016-10-16] MEDS: Aspirin EC Low Dose* 81 MG TAB.EC PO SCH (07:43)
[2016-10-16] MEDS: NS 0.9% 1000 ML* 1,000 ML IV SCH ×2 (10:21→20:51)
--- NOTE | 2016-10-16 17:09 | PN ---
Subjective Date of Service: 10/16/16 Interval History: Patient says she feels better today. Objective Active Medications: Acetaminophen (Tylenol Tab*) 650 mg PO Q4H PRN PRN Reason: FEVER/PAIN Last Admin: 10/15/16 21:18 Dose: 650 mg Amiodarone HCl (Cordarone Tab*) 200 mg PO DAILY [facility] Last Admin: 10/16/16 07:43 Dose: 200 mg Amlodipine Besylate (Norvasc Tab*) 5 mg PO DAILY [facility] Last Admin: 10/16/16 07:43 Dose: 5 mg Aspirin (Aspirin Ec Low Dose*) 81 mg PO DAILY [facility] Last Admin: 10/16/16 07:43 Dose: 81 mg Atorvastatin Calcium (Lipitor*) 20 mg PO 2100 [facility] Last Admin: 10/15/16 20:01 Dose: 20 mg Brimonidine/Timolol (Combigan 0.2/0.5% (Nf)) 1 drop BOTH EYES BID [facility] Last Admin: 10/16/16 07:43 Dose: 1 drop Citalopram Hydrobromide (Celexa Tab*) 20 mg PO DAILY [facility] Last Admin: 10/16/16 07:43 Dose: 20 mg Docusate Sodium (Colace Cap*) 100 mg PO BID PRN PRN Reason: CONSTIPATION Last Admin: 10/14/16 21:37 Dose: 100 mg Ceftriaxone Sodium 1,000 mg/ (Sodium Chloride) 50 mls @ 200 mls/hr IVPB Q24H [facility] Last Admin: 10/15/16 17:39 Dose: 200 mls/hr Sodium Chloride (Ns 0.9% 1000 Ml*) 1,000 mls @ 100 mls/hr IV PER RATE [facility] Last Admin: 10/16/16 10:21 Dose: 100 mls/hr Latanoprost (Xalatan 0.005%*) 1 drop BOTH EYES 2130 [facility] Last Admin: 10/15/16 21:10 Dose: 1 drop Metoprolol Tartrate (Lopressor Tab*) 25 mg PO BID [facility] Last Admin: 10/16/16 07:43 Dose: 25 mg Omeprazole (Prilosec Cap*) 20 mg PO DAILY [facility] Last Admin: 10/16/16 07:43 Dose: 20 mg Ondansetron HCl (Zofran Inj*) 4 mg IV Q6H PRN PRN Reason: NAUSEA Polyethylene Glycol/Electrolytes (Miralax*) 17 gm PO DAILY PRN PRN Reason: CONSTIPATION Rivaroxaban (Xarelto(*)) 15 mg PO DAILY [facility] Last Admin: 10/16/16 07:43 Dose: 15 mg Senna (Senokot Tab*) 2 tab PO BEDTIME PRN PRN Reason: CONSTIPATION Valsartan (Diovan Tab*) 160 mg PO BEDTIME [facility] Last Admin: 10/15/16 20:01 Dose: 160 mg Vital Signs 10/15/16 10/15/16 10/15/16 19:44 20:00 23:32 Temperature 98.3 F 98.0 F Pulse Rate 60 60 Respiratory 16 14 Rate Blood Pressure 150/62 116/55 (mmHg) O2 Sat by Pulse 96 98 Oximetry 10/16/16 10/16/16 10/16/16 03:22 07:28 08:52 Temperature 98.0 F 98.2 F Pulse Rate 60 60 Respiratory 16 18 Rate Blood Pressure 129/64 185/74 (mmHg) O2 Sat by Pulse 99 98 Oximetry 10/16/16 10/16/16 10/16/16 10:39 11:35 15:04 Temperature 97.9 F 98.1 F Pulse Rate 60 60 60 Respiratory Rate Blood Pressure 131/60 136/65 183/72 (mmHg) O2 Sat by Pulse 96 99 Oximetry Oxygen Devices in Use Now: None Appearance: Elderly woman lying in bed in NAD Eyes: No Scleral Icterus Ears/Nose/Mouth/Throat: Mucous Membranes Moist Neck: No Thyroid Enlargement, Masses Respiratory: Clear to Auscultation Cardiovascular: - - S1S2 paula Abdominal: NL Sounds; No Tenderness; No Distention, No Hepatosplenomegaly Lymphatic: No Cervical Adenopathy Extremities: No Clubbing, Cyanosis Skin: No Rash or Ulcers Neurological: Alert and Oriented x 3 Result Diagrams: 10/13/16 06:33 10/13/16 06:33 Additional Lab and Data: Lab Results 10/12/16 10/12/16 10/12/16 Range/Units 14:43 14:43 14:43 WBC 7.1 (3.5-10.8) 10^3/ul RBC 4.13 (4.0-5.4) 10^6/ul Hgb 11.3 L (12.0-16.0) g/dl Hct 35 (35-47) % MCV 84 (80-97) fL MCH 27 (27-31) pg MCHC 33 (31-36) g/dl RDW 20 H (10.5-15) % Plt Count 285 (150-450) 10^3/ul MPV 9 (7.4-10.4) um3 Neut % (Auto) 72.4 (38-83) % Lymph % (Auto) 14.2 L (25-47) % [place] % (Auto) 7.1 (1-9) % Eos % (Auto) 5.1 (0-6) % Baso % (Auto) 1.2 (0-2) % Absolute Neuts (auto) 5.1 (1.5-7.7) 10^3/ul Absolute Lymphs (auto) 1.0 (1.0-4.8) 10^3/ul Absolute Monos (auto) 0.5 (0-0.8) 10^3/ul Absolute Eos (auto) 0.4 (0-0.6) 10^3/ul Absolute Basos (auto) 0.1 (0-0.2) 10^3/ul Absolute Nucleated RBC 0 10^3/ul Nucleated RBC % 0 INR (Anticoag Therapy) 1.98 H (0.89-1.11) APTT 40.2 H (26.0-36.3) seconds Sodium 131 L (133-145) mmol/L Potassium 4.2 (3.5-5.0) mmol/L Chloride 99 L (101-111) mmol/L Carbon Dioxide 26 (22-32) mmol/L Anion Gap 6 (2-11) mmol/L BUN 19 (6-24) mg/dL Creatinine 0.89 (0.51-0.95) mg/dL Est GFR ( Amer) 77.9 (>60) Est GFR (Non-Af Amer) 60.6 (>60) BUN/Creatinine Ratio 21.3 H (8-20) Glucose 100 (70-100) mg/dL Lactic Acid (0.5-2.0) mmol/L Calcium 9.3 (8.6-10.3) mg/dL Magnesium 1.9 (1.9-2.7) mg/dL Total Bilirubin 0.40 (0.2-1.0) mg/dL AST 19 (13-39) U/L ALT 16 (7-52) U/L Alkaline Phosphatase 95 (34-104) U/L Total Creatine Kinase 23 (10-223) U/L CK-MB (CK-2) 1.8 (0.6-6.3) ng/mL Troponin I 0.01 (<0.04) ng/mL C-Reactive Protein 6.84 H (< 5.00) mg/L B-Natriuretic Peptide ( - 100) pg/mL Total Protein 7.3 (6.4-8.9) g/dL Albumin 3.8 (3.2-5.2) g/dL Globulin 3.5 (2-4) g/dL Albumin/Globulin Ratio 1.1 (1-3) Lipase 41 (11.0-82.0) U/L TSH 2.24 (0.34-5.60) mcIU/mL Urine Color Urine Appearance Urine pH (5-9) Ur Specific [place] (1.010-1.030) Urine Protein (Negative) Urine Ketones (Negative) Urine Blood (Negative) Urine Nitrate (Negative) Urine Bilirubin (Negative) Urine Urobilinogen (Negative) Ur Leukocyte Esterase (Negative) Urine WBC (Auto) (Absent) Urine RBC (Auto) (Absent) Ur Squamous Epith Cells (Absent) Urine Bacteria (Absent) Urine Glucose (Negative) Urine Ascorbic Acid (Negative) 10/12/16 10/12/16 10/12/16 Range/Units 14:43 15:35 17:35 WBC (3.5-10.8) 10^3/ul RBC (4.0-5.4) 10^6/ul Hgb (12.0-16.0) g/dl Hct (35-47) % MCV (80-97) fL MCH (27-31) pg MCHC (31-36) g/dl RDW (10.5-15) % Plt Count (150-450) 10^3/ul MPV (7.4-10.4) um3 Neut % (Auto) (38-83) % Lymph % (Auto) (25-47) % [place] % (Auto) (1-9) % Eos % (Auto) (0-6) % Baso % (Auto) (0-2) % Absolute Neuts (auto) (1.5-7.7) 10^3/ul Absolute Lymphs (auto) (1.0-4.8) 10^3/ul Absolute Monos (auto) (0-0.8) 10^3/ul Absolute Eos (auto) (0-0.6) 10^3/ul Absolute Basos (auto) (0-0.2) 10^3/ul Absolute Nucleated RBC 10^3/ul Nucleated RBC % INR (Anticoag Therapy) (0.89-1.11) APTT (26.0-36.3) seconds Sodium (133-145) mmol/L Potassium (3.5-5.0) mmol/L Chloride (101-111) mmol/L Carbon Dioxide (22-32) mmol/L Anion Gap (2-11) mmol/L BUN (6-24) mg/dL Creatinine (0.51-0.95) mg/dL Est GFR ( Amer) (>60) Est GFR (Non-Af Amer) (>60) BUN/Creatinine Ratio (8-20) Glucose (70-100) mg/dL Lactic Acid 0.8 (0.5-2.0) mmol/L Calcium (8.6-10.3) mg/dL Magnesium (1.9-2.7) mg/dL Total Bilirubin (0.2-1.0) mg/dL AST (13-39) U/L ALT (7-52) U/L Alkaline Phosphatase (34-104) U/L Total Creatine Kinase (10-223) U/L CK-MB (CK-2) (0.6-6.3) ng/mL Troponin I (<0.04) ng/mL C-Reactive Protein (< 5.00) mg/L B-Natriuretic Peptide 199 H ( - 100) pg/mL Total Protein (6.4-8.9) g/dL Albumin (3.2-5.2) g/dL Globulin (2-4) g/dL Albumin/Globulin Ratio (1-3) Lipase (11.0-82.0) U/L TSH (0.34-5.60) mcIU/mL Urine Color Yellow Urine Appearance Cloudy Urine pH 7.0 (5-9) Ur Specific [place] 1.009 L (1.010-1.030) Urine Protein Negative (Negative) Urine Ketones Negative (Negative) Urine Blood Negative (Negative) Urine Nitrate Positive H (Negative) Urine Bilirubin Negative (Negative) Urine Urobilinogen Negative (Negative) Ur Leukocyte Esterase 2+ H (Negative) Urine WBC (Auto) 1+(6-10/hpf) H (Absent) Urine RBC (Auto) 1+(3-5/hpf) H (Absent) Ur Squamous Epith Cells Present H (Absent) Urine Bacteria 1+ H (Absent) Urine Glucose Negative (Negative) Urine Ascorbic Acid * H (Negative) Assess/Plan/Problems-Billing Ms Luz is an 81 yo F with a h/o HTN, CAD, afib and past h/o TIA who presented to the ER for c/o weakness and lightheadedness and was found to have a UTI. - Patient Problems (1) UTI (urinary tract infection) Current Visit: Yes Status: Acute Comment: Although culture negative continue on ceftriaxone 1g IV daily day number 5.She feels better. May continue for 7 - 10 days. (2) Afib Current Visit: Yes Status: Acute Code(s): I48.91 - UNSPECIFIED ATRIAL FIBRILLATION SNOMED Code(s): 06033506 Comment: HR adequately controlled. Continue xarelto, amiodarone and metoprolol. (3) Hypertension Current Visit: Yes Status: Acute Code(s): I10 - ESSENTIAL (PRIMARY) HYPERTENSION SNOMED Code(s): 21143919 Comment: BP is variable. Can be wnl versus very high. Would not adjust at this time. (4) Weakness Current Visit: Yes Status: Acute Code(s): R53.1 - WEAKNESS SNOMED Code(s) : 61608884 Comment: May be secondary to UTI, but patient still weak. ?? Depression. Started Celexa yesterday. She is better today after ambulating more. (5) DVT prophylaxis Current Visit: Yes Status: Acute Code(s): TVN5763 - SNOMED Code(s): 923681594 Comment: On xarelto (6) DNR (do not resuscitate) Current Visit: Yes Status: Acute
[2016-10-16] MEDS: cefTRIAXone VIAL(*) 1,000 MG in NS 0.9% 50 ML* 50 ML IVPB SCH (18:07)
[2016-10-16] MEDS: Valsartan TAB* 160 MG PO SCH (20:52)
[2016-10-16] MEDS: Atorvastatin* 20 MG TAB PO SCH (20:52)
[2016-10-16] MEDS: Acetaminophen TAB* 325 MG PO PRN (20:52)
[2016-10-16] MEDS: Latanoprost 0.005%* 2.5 ml BTL BOTH EYES SCH ×2 (20:52→22:02)
[2016-10-17] MEDS ORDERED: hydrALAZINE IV* 20 MG/ML VIAL ONE (05:01)
[2016-10-17] MEDS: hydrALAZINE IV* 20 MG/ML VIAL IV PRN ×2 (05:06→16:07)
[2016-10-17] MEDS: Acetaminophen TAB* 325 MG PO PRN ×3 (06:25→21:42)
[2016-10-17] MEDS: NS 0.9% 1000 ML* 1,000 ML IV SCH ×2 (06:27→17:18)
[2016-10-17] MEDS: Amiodarone TAB* 200 MG PO SCH (08:48)
[2016-10-17] MEDS: Brimonid/Timolol 0.2/0.5%(NF) 10 ML OPHTH.SOLN BOTH EYES SCH ×2 (08:49→21:43)
[2016-10-17] MEDS: Rivaroxaban TAB(*) 15 MG PO SCH (08:49)
[2016-10-17] MEDS: Aspirin EC Low Dose* 81 MG TAB.EC PO SCH (08:49)
[2016-10-17] MEDS: Citalopram TAB* 20 MG PO SCH (08:49)
[2016-10-17] MEDS: Metoprolol Tartrate TAB* 25 MG PO SCH ×2 (08:49→21:42)
[2016-10-17] MEDS: Omeprazole CAP* 20 MG PO SCH (08:49)
[2016-10-17] MEDS: amLODIPine TAB* 5 MG PO SCH (08:50)
[2016-10-17] MEDS: Simethicone CHEW TAB* 80 MG PO PRN ×2 (09:45→17:12)
--- NOTE | 2016-10-17 09:48 | PN ---
Subjective Date of Service: 10/17/16 Interval History: Patient seen this morning. Reports some lower abdominal pain. Says it has been going on for 3-4 months intermittently, more noticeable today, usually takes Mylanta at home. No fever or chills. Appetite has not been great. Has been having some loose stools. Family History: Unchanged from Admission Social History: Unchanged from Admission Past Medical History: Unchanged from Admission Objective Active Medications: Acetaminophen (Tylenol Tab*) 650 mg PO Q4H PRN Amiodarone HCl (Cordarone Tab*) 200 mg PO DAILY [facility] Amlodipine Besylate (Norvasc Tab*) 5 mg PO DAILY [facility] Aspirin (Aspirin Ec Low Dose*) 81 mg PO DAILY [facility] Atorvastatin Calcium (Lipitor*) 20 mg PO 2100 [facility] Brimonidine/Timolol (Combigan 0.2/0.5% (Nf)) 1 drop BOTH EYES BID [facility] Citalopram Hydrobromide (Celexa Tab*) 20 mg PO DAILY [facility] Docusate Sodium (Colace Cap*) 100 mg PO BID PRN Hydralazine HCl (Apresoline Iv*) 10 mg IV Q4H PRN Sodium Chloride (Ns 0.9% 1000 Ml*) 1,000 mls @ 100 mls/hr IV PER RATE [facility] Latanoprost (Xalatan 0.005%*) 1 drop BOTH EYES 2130 [facility] Metoprolol Tartrate (Lopressor Tab*) 25 mg PO BID [facility] Omeprazole (Prilosec Cap*) 20 mg PO DAILY [facility] Ondansetron HCl (Zofran Inj*) 4 mg IV Q6H PRN Polyethylene Glycol/Electrolytes (Miralax*) 17 gm PO DAILY PRN Rivaroxaban (Xarelto(*)) 15 mg PO DAILY [facility] Senna (Senokot Tab*) 2 tab PO BEDTIME PRN Simethicone (Mylicon*) 80 mg PO Q6H PRN Valsartan (Diovan Tab*) 160 mg PO BEDTIME [facility] Vital Signs 10/16/16 10/16/16 10/16/16 10:39 11:35 15:04 Temperature 97.9 F 98.1 F Pulse Rate 60 60 60 Respiratory Rate Blood Pressure 131/60 136/65 183/72 (mmHg) O2 Sat by Pulse 96 99 Oximetry 10/16/16 10/16/1617 15:10 19:15 20:00 Temperature 98.2 F Pulse Rate 60 Respiratory 16 16 Rate Blood Pressure 170/80 146/66 (mmHg) O2 Sat by Pulse 95 Oximetry 10/16/16 10/17/16 10/17/16 23:22 03:32 04:25 Temperature 98.6 F 98.0 F Pulse Rate 60 60 Respiratory 16 16 Rate Blood Pressure 128/62 173/73 204/90 (mmHg) O2 Sat by Pulse 98 97 Oximetry 10/17/16 10/17/16 05:52 07:31 Temperature 97.7 F Pulse Rate 60 59 Respiratory Rate Blood Pressure 170/63 182/74 (mmHg) O2 Sat by Pulse 98 98 Oximetry Oxygen Devices in Use Now: None Appearance: Elderly, F, laying in bed in NAD Eyes: No Scleral Icterus Ears/Nose/Mouth/Throat: Mucous Membranes Moist Neck: NL Appearance and Movements; NL JVP Respiratory: Symmetrical Chest Expansion and Respiratory Effort, Clear to Auscultation Cardiovascular: - - IRIR Abdominal: - - Soft, non-distended, mild TTP in suprapubic area, no rebound/ guarding, BS+ Lymphatic: No Cervical Adenopathy Extremities: No Edema Skin: No Rash or Ulcers Neurological: Alert and Oriented x 3 Result Diagrams: 10/13/16 06:33 10/13/16 06:33 Additional Lab and Data: Lab Results 10/12/16 10/12/16 10/12/16 Range/Units 14:43 14:43 14:43 WBC 7.1 (3.5-10.8) 10^3/ul RBC 4.13 (4.0-5.4) 10^6/ul Hgb 11.3 L (12.0-16.0) g/dl Hct 35 (35-47) % MCV 84 (80-97) fL MCH 27 (27-31) pg MCHC 33 (31-36) g/dl RDW 20 H (10.5-15) % Plt Count 285 (150-450) 10^3/ul MPV 9 (7.4-10.4) um3 Neut % (Auto) 72.4 (38-83) % Lymph % (Auto) 14.2 L (25-47) % [place] % (Auto) 7.1 (1-9) % Eos % (Auto) 5.1 (0-6) % Baso % (Auto) 1.2 (0-2) % Absolute Neuts (auto) 5.1 (1.5-7.7) 10^3/ul Absolute Lymphs (auto) 1.0 (1.0-4.8) 10^3/ul Absolute Monos (auto) 0.5 (0-0.8) 10^3/ul Absolute Eos (auto) 0.4 (0-0.6) 10^3/ul Absolute Basos (auto) 0.1 (0-0.2) 10^3/ul Absolute Nucleated RBC 0 10^3/ul Nucleated RBC % 0 INR (Anticoag Therapy) 1.98 H (0.89-1.11) APTT 40.2 H (26.0-36.3) seconds Sodium 131 L (133-145) mmol/L Potassium 4.2 (3.5-5.0) mmol/L Chloride 99 L (101-111) mmol/L Carbon Dioxide 26 (22-32) mmol/L Anion Gap 6 (2-11) mmol/L BUN 19 (6-24) mg/dL Creatinine 0.89 (0.51-0.95) mg/dL Est GFR ( Amer) 77.9 (>60) Est GFR (Non-Af Amer) 60.6 (>60) BUN/Creatinine Ratio 21.3 H (8-20) Glucose 100 (70-100) mg/dL Lactic Acid (0.5-2.0) mmol/L Calcium 9.3 (8.6-10.3) mg/dL Magnesium 1.9 (1.9-2.7) mg/dL Total Bilirubin 0.40 (0.2-1.0) mg/dL AST 19 (13-39) U/L ALT 16 (7-52) U/L Alkaline Phosphatase 95 (34-104) U/L Total Creatine Kinase 23 (10-223) U/L CK-MB (CK-2) 1.8 (0.6-6.3) ng/mL Troponin I 0.01 (<0.04) ng/mL C-Reactive Protein 6.84 H (< 5.00) mg/L B-Natriuretic Peptide ( - 100) pg/mL Total Protein 7.3 (6.4-8.9) g/dL Albumin 3.8 (3.2-5.2) g/dL Globulin 3.5 (2-4) g/dL Albumin/Globulin Ratio 1.1 (1-3) Lipase 41 (11.0-82.0) U/L TSH 2.24 (0.34-5.60) mcIU/mL Urine Color Urine Appearance Urine pH (5-9) Ur Specific [place] (1.010-1.030) Urine Protein (Negative) Urine Ketones (Negative) Urine Blood (Negative) Urine Nitrate (Negative) Urine Bilirubin (Negative) Urine Urobilinogen (Negative) Ur Leukocyte Esterase (Negative) Urine WBC (Auto) (Absent) Urine RBC (Auto) (Absent) Ur Squamous Epith Cells (Absent) Urine Bacteria (Absent) Urine Glucose (Negative) Urine Ascorbic Acid (Negative) 10/12/16 10/12/16 10/12/16 Range/Units 14:43 15:35 17:35 WBC (3.5-10.8) 10^3/ul RBC (4.0-5.4) 10^6/ul Hgb (12.0-16.0) g/dl Hct (35-47) % MCV (80-97) fL MCH (27-31) pg MCHC (31-36) g/dl RDW (10.5-15) % Plt Count (150-450) 10^3/ul MPV (7.4-10.4) um3 Neut % (Auto) (38-83) % Lymph % (Auto) (25-47) % [place] % (Auto) (1-9) % Eos % (Auto) (0-6) % Baso % (Auto) (0-2) % Absolute Neuts (auto) (1.5-7.7) 10^3/ul Absolute Lymphs (auto) (1.0-4.8) 10^3/ul Absolute Monos (auto) (0-0.8) 10^3/ul Absolute Eos (auto) (0-0.6) 10^3/ul Absolute Basos (auto) (0-0.2) 10^3/ul Absolute Nucleated RBC 10^3/ul Nucleated RBC % INR (Anticoag Therapy) (0.89-1.11) APTT (26.0-36.3) seconds Sodium (133-145) mmol/L Potassium (3.5-5.0) mmol/L Chloride (101-111) mmol/L Carbon Dioxide (22-32) mmol/L Anion Gap (2-11) mmol/L BUN (6-24) mg/dL Creatinine (0.51-0.95) mg/dL Est GFR ( Amer) (>60) Est GFR (Non-Af Amer) (>60) BUN/Creatinine Ratio (8-20) Glucose (70-100) mg/dL Lactic Acid 0.8 (0.5-2.0) mmol/L Calcium (8.6-10.3) mg/dL Magnesium (1.9-2.7) mg/dL Total Bilirubin (0.2-1.0) mg/dL AST (13-39) U/L ALT (7-52) U/L Alkaline Phosphatase (34-104) U/L Total Creatine Kinase (10-223) U/L CK-MB (CK-2) (0.6-6.3) ng/mL Troponin I (<0.04) ng/mL C-Reactive Protein (< 5.00) mg/L B-Natriuretic Peptide 199 H ( - 100) pg/mL Total Protein (6.4-8.9) g/dL Albumin (3.2-5.2) g/dL Globulin (2-4) g/dL Albumin/Globulin Ratio (1-3) Lipase (11.0-82.0) U/L TSH (0.34-5.60) mcIU/mL Urine Color Yellow Urine Appearance Cloudy Urine pH 7.0 (5-9) Ur Specific [place] 1.009 L (1.010-1.030) Urine Protein Negative (Negative) Urine Ketones Negative (Negative) Urine Blood Negative (Negative) Urine Nitrate Positive H (Negative) Urine Bilirubin Negative (Negative) Urine Urobilinogen Negative (Negative) Ur Leukocyte Esterase 2+ H (Negative) Urine WBC (Auto) 1+(6-10/hpf) H (Absent) Urine RBC (Auto) 1+(3-5/hpf) H (Absent) Ur Squamous Epith Cells Present H (Absent) Urine Bacteria 1+ H (Absent) Urine Glucose Negative (Negative) Urine Ascorbic Acid * H (Negative) Assess/Plan/Problems-Billing Ms Luz is an 81 yo F with a h/o HTN, CAD, afib and past h/o TIA who presented to the ER for c/o weakness and lightheadedness and was found to have a UTI. - Patient Problems (1) UTI (urinary tract infection) Current Visit: Yes Comment: S/P 5 days IV CTX, will stop now. (2) Weakness Current Visit: Yes Comment: May be secondary to UTI. Continue Celexa for now ( started in the hospital for possible depression). PT cleared patient to return home. (3) Abdominal pain Current Visit: Yes Comment: loose stools. May be related to ABx. Will order simethicone. Monitor today. (4) Afib Current Visit: Yes Comment: HR adequately controlled. Continue xarelto, amiodarone and metoprolol. (5) Hypertension Current Visit: Yes Comment: BPs continue to fluctuate wildly. Seem to improve after morning meds. For now continue regimen of Valsartan, Metoprolol and Amlodipine (added this hospitalization) (6) DVT prophylaxis Current Visit: Yes Comment: On xarelto (7) DNR (do not resuscitate) Current Visit: Yes Status and Disposition: Evaluate over the course of the day today, potential discharge later today.
[2016-10-17] MEDS ORDERED: Ibuprofen TAB* 600 MG PO ONE (18:26)
[2016-10-17] MEDS: Atorvastatin* 20 MG TAB PO SCH (21:42)
[2016-10-17] MEDS: Valsartan TAB* 160 MG PO SCH (21:42)
[2016-10-17] MEDS: Latanoprost 0.005%* 2.5 ml BTL BOTH EYES SCH (22:48)
[2016-10-18] MEDS: Acetaminophen TAB* 325 MG PO PRN ×4 (03:31→21:33)
[2016-10-18] MEDS: NS 0.9% 1000 ML* 1,000 ML IV SCH (03:33)
[2016-10-18] MEDS: hydrALAZINE IV* 20 MG/ML VIAL IV PRN ×2 (06:27→16:00)
[2016-10-18] MEDS: Citalopram TAB* 20 MG PO SCH (09:01)
[2016-10-18] MEDS: amLODIPine TAB* 5 MG PO SCH (09:01)
[2016-10-18] MEDS: Metoprolol Tartrate TAB* 25 MG PO SCH ×2 (09:01→21:38)
[2016-10-18] MEDS: Amiodarone TAB* 200 MG PO SCH (09:01)
[2016-10-18] MEDS: Aspirin EC Low Dose* 81 MG TAB.EC PO SCH (09:01)
[2016-10-18] MEDS: Omeprazole CAP* 20 MG PO SCH (09:01)
[2016-10-18] MEDS: Brimonid/Timolol 0.2/0.5%(NF) 10 ML OPHTH.SOLN BOTH EYES SCH ×2 (09:02→21:30)
[2016-10-18] MEDS: Rivaroxaban TAB(*) 15 MG PO SCH (09:14)
--- NOTE | 2016-10-18 15:36 | PN ---
Subjective Date of Service: 10/18/16 Interval History: Patient feels weak again. [place] better two days ago. She cannot put her finger on it. Family History: Unchanged from Admission Social History: Unchanged from Admission Past Medical History: Unchanged from Admission Objective Active Medications: Acetaminophen (Tylenol Tab*) 650 mg PO Q4H PRN PRN Reason: FEVER/PAIN Last Admin: 10/18/16 09:02 Dose: 650 mg Amiodarone HCl (Cordarone Tab*) 200 mg PO DAILY [facility] Last Admin: 10/18/16 09:01 Dose: 200 mg Amlodipine Besylate (Norvasc Tab*) 5 mg PO DAILY [facility] Last Admin: 10/18/16 09:01 Dose: 5 mg Aspirin (Aspirin Ec Low Dose*) 81 mg PO DAILY [facility] Last Admin: 10/18/16 09:01 Dose: 81 mg Atorvastatin Calcium (Lipitor*) 20 mg PO 2100 [facility] Last Admin: 10/17/16 21:42 Dose: 20 mg Brimonidine/Timolol (Combigan 0.2/0.5% (Nf)) 1 drop BOTH EYES BID [facility] Last Admin: 10/18/16 09:02 Dose: 1 drop Citalopram Hydrobromide (Celexa Tab*) 20 mg PO DAILY [facility] Last Admin: 10/18/16 09:01 Dose: 20 mg Docusate Sodium (Colace Cap*) 100 mg PO BID PRN PRN Reason: CONSTIPATION Last Admin: 10/14/16 21:37 Dose: 100 mg Hydralazine HCl (Apresoline Iv*) 10 mg IV Q4H PRN PRN Reason: Systolic >170 Last Admin: 10/18/16 06:27 Dose: 10 mg Sodium Chloride (Ns 0.9% 1000 Ml*) 1,000 mls @ 100 mls/hr IV PER RATE [facility] Last Admin: 10/18/16 03:33 Dose: 100 mls/hr Latanoprost (Xalatan 0.005%*) 1 drop BOTH EYES 2130 [facility] Last Admin: 10/17/16 22:48 Dose: 1 drop Metoprolol Tartrate (Lopressor Tab*) 25 mg PO BID [facility] Last Admin: 10/18/16 09:01 Dose: 25 mg Omeprazole (Prilosec Cap*) 20 mg PO DAILY [facility] Last Admin: 04/29/17 09:01 Dose: 20 mg Ondansetron HCl (Zofran Inj*) 4 mg IV Q6H PRN PRN Reason: NAUSEA Polyethylene Glycol/Electrolytes (Miralax*) 17 gm PO DAILY PRN PRN Reason: CONSTIPATION Rivaroxaban (Xarelto(*)) 15 mg PO DAILY [facility] Last Admin: 10/18/16 09:14 Dose: 15 mg Senna (Senokot Tab*) 2 tab PO BEDTIME PRN PRN Reason: CONSTIPATION Simethicone (Mylicon*) 80 mg PO Q6H PRN PRN Reason: Abdominal discomfort Last Admin: 10/17/16 17:12 Dose: 80 mg Valsartan (Diovan Tab*) 160 mg PO BEDTIME [facility] Last Admin: 10/17/16 21:42 Dose: 160 mg Vital Signs 10/17/16 10/17/16 10/17/16 17:30 19:36 20:00 Temperature 97.7 F Pulse Rate 60 60 Respiratory 16 16 Rate Blood Pressure 137/62 146/63 (mmHg) O2 Sat by Pulse 97 Oximetry 10/17/16 10/18/16 10/18/16 23:16 03:44 06:25 Temperature 98.0 F 98.1 F Pulse Rate 59 60 60 Respiratory 14 18 Rate Blood Pressure 109/48 172/74 194/75 (mmHg) O2 Sat by Pulse 98 97 Oximetry 10/18/16 10/18/16 10/18/16 07:39 08:00 12:35 Temperature 97.8 F 97.7 F Pulse Rate 60 60 Respiratory 15 15 15 Rate Blood Pressure 144/63 159/65 (mmHg) O2 Sat by Pulse 96 98 Oximetry Oxygen Devices in Use Now: None Appearance: Elderly woman lying in bed in [facility] Eyes: No Scleral Icterus Ears/Nose/Mouth/Throat: Mucous Membranes Moist Neck: No Thyroid Enlargement, Masses Respiratory: Clear to Auscultation Cardiovascular: - - S1S2 paula Abdominal: NL Sounds; No Tenderness; No Distention, No Hepatosplenomegaly Lymphatic: No Cervical Adenopathy Extremities: No Edema, No Clubbing, Cyanosis Skin: No Rash or Ulcers Neurological: Alert and Oriented x 3 Result Diagrams: 10/13/16 06:33 10/13/16 06:33 Additional Lab and Data: Lab Results 04/23/17 04/23/17 04/23/17 Range/Units 14:43 14:43 14:43 WBC 7.1 (3.5-10.8) 10^3/ul RBC 4.13 (4.0-5.4) 10^6/ul Hgb 11.3 L (12.0-16.0) g/dl Hct 35 (35-47) % MCV 84 (80-97) fL MCH 27 (27-31) pg MCHC 33 (31-36) g/dl RDW 20 H (10.5-15) % Plt Count 285 (150-450) 10^3/ul MPV 9 (7.4-10.4) um3 Neut % (Auto) 72.4 (38-83) % Lymph % (Auto) 14.2 L (25-47) % [place] % (Auto) 7.1 (1-9) % Eos % (Auto) 5.1 (0-6) % Baso % (Auto) 1.2 (0-2) % Absolute Neuts (auto) 5.1 (1.5-7.7) 10^3/ul Absolute Lymphs (auto) 1.0 (1.0-4.8) 10^3/ul Absolute Monos (auto) 0.5 (0-0.8) 10^3/ul Absolute Eos (auto) 0.4 (0-0.6) 10^3/ul Absolute Basos (auto) 0.1 (0-0.2) 10^3/ul Absolute Nucleated RBC 0 10^3/ul Nucleated RBC % 0 INR (Anticoag Therapy) 1.98 H (0.89-1.11) APTT 40.2 H (26.0-36.3) seconds Sodium 131 L (133-145) mmol/L Potassium 4.2 (3.5-5.0) mmol/L Chloride 99 L (101-111) mmol/L Carbon Dioxide 26 (22-32) mmol/L Anion Gap 6 (2-11) mmol/L BUN 19 (6-24) mg/dL Creatinine 0.89 (0.51-0.95) mg/dL Est GFR ( Amer) 77.9 (>60) Est GFR (Non-Af Amer) 60.6 (>60) BUN/Creatinine Ratio 21.3 H (8-20) Glucose 100 (70-100) mg/dL Lactic Acid (0.5-2.0) mmol/L Calcium 9.3 (8.6-10.3) mg/dL Magnesium 1.9 (1.9-2.7) mg/dL Total Bilirubin 0.40 (0.2-1.0) mg/dL AST 19 (13-39) U/L ALT 16 (7-52) U/L Alkaline Phosphatase 95 (34-104) U/L Total Creatine Kinase 23 (10-223) U/L CK-MB (CK-2) 1.8 (0.6-6.3) ng/mL Troponin I 0.01 (<0.04) ng/mL C-Reactive Protein 6.84 H (< 5.00) mg/L B-Natriuretic Peptide ( - 100) pg/mL Total Protein 7.3 (6.4-8.9) g/dL Albumin 3.8 (3.2-5.2) g/dL Globulin 3.5 (2-4) g/dL Albumin/Globulin Ratio 1.1 (1-3) Lipase 41 (11.0-82.0) U/L TSH 2.24 (0.34-5.60) mcIU/mL Urine Color Urine Appearance Urine pH (5-9) Ur Specific [place] (1.010-1.030) Urine Protein (Negative) Urine Ketones (Negative) Urine Blood (Negative) Urine Nitrate (Negative) Urine Bilirubin (Negative) Urine Urobilinogen (Negative) Ur Leukocyte Esterase (Negative) Urine WBC (Auto) (Absent) Urine RBC (Auto) (Absent) Ur Squamous Epith Cells (Absent) Urine Bacteria (Absent) Urine Glucose (Negative) Urine Ascorbic Acid (Negative) 10/12/16 10/12/16 10/12/16 Range/Units 14:43 15:35 17:35 WBC (3.5-10.8) 10^3/ul RBC (4.0-5.4) 10^6/ul Hgb (12.0-16.0) g/dl Hct (35-47) % MCV (80-97) fL MCH (27-31) pg MCHC (31-36) g/dl RDW (10.5-15) % Plt Count (150-450) 10^3/ul MPV (7.4-10.4) um3 Neut % (Auto) (38-83) % Lymph % (Auto) (25-47) % [place] % (Auto) (1-9) % Eos % (Auto) (0-6) % Baso % (Auto) (0-2) % Absolute Neuts (auto) (1.5-7.7) 10^3/ul Absolute Lymphs (auto) (1.0-4.8) 10^3/ul Absolute Monos (auto) (0-0.8) 10^3/ul Absolute Eos (auto) (0-0.6) 10^3/ul Absolute Basos (auto) (0-0.2) 10^3/ul Absolute Nucleated RBC 10^3/ul Nucleated RBC % INR (Anticoag Therapy) (0.89-1.11) APTT (26.0-36.3) seconds Sodium (133-145) mmol/L Potassium (3.5-5.0) mmol/L Chloride (101-111) mmol/L Carbon Dioxide (22-32) mmol/L Anion Gap (2-11) mmol/L BUN (6-24) mg/dL Creatinine (0.51-0.95) mg/dL Est GFR ( Amer) (>60) Est GFR (Non-Af Amer) (>60) BUN/Creatinine Ratio (8-20) Glucose (70-100) mg/dL Lactic Acid 0.8 (0.5-2.0) mmol/L Calcium (8.6-10.3) mg/dL Magnesium (1.9-2.7) mg/dL Total Bilirubin (0.2-1.0) mg/dL AST (13-39) U/L ALT (7-52) U/L Alkaline Phosphatase (34-104) U/L Total Creatine Kinase (10-223) U/L CK-MB (CK-2) (0.6-6.3) ng/mL Troponin I (<0.04) ng/mL C-Reactive Protein (< 5.00) mg/L B-Natriuretic Peptide 199 H ( - 100) pg/mL Total Protein (6.4-8.9) g/dL Albumin (3.2-5.2) g/dL Globulin (2-4) g/dL Albumin/Globulin Ratio (1-3) Lipase (11.0-82.0) U/L TSH (0.34-5.60) mcIU/mL Urine Color Yellow Urine Appearance Cloudy Urine pH 7.0 (5-9) Ur Specific [place] 1.009 L (1.010-1.030) Urine Protein Negative (Negative) Urine Ketones Negative (Negative) Urine Blood Negative (Negative) Urine Nitrate Positive H (Negative) Urine Bilirubin Negative (Negative) Urine Urobilinogen Negative (Negative) Ur Leukocyte Esterase 2+ H (Negative) Urine WBC (Auto) 1+(6-10/hpf) H (Absent) Urine RBC (Auto) 1+(3-5/hpf) H (Absent) Ur Squamous Epith Cells Present H (Absent) Urine Bacteria 1+ H (Absent) Urine Glucose Negative (Negative) Urine Ascorbic Acid * H (Negative) Assess/Plan/Problems-Billing Ms Luz is an 81 yo F with a h/o HTN, CAD, afib and past h/o TIA who presented to the ER for c/o weakness and lightheadedness and was found to have a UTI. - Patient Problems (1) UTI (urinary tract infection) Current Visit: Yes Status: Acute Comment: Resolved (2) Afib Current Visit: Yes Status: Acute Code(s): I48.91 - UNSPECIFIED ATRIAL FIBRILLATION SNOMED Code(s): 57793266 Comment: HR adequately controlled. Continue xarelto, amiodarone and metoprolol. (3) Hypertension Current Visit: Yes Status: Acute Code(s): I10 - ESSENTIAL (PRIMARY) HYPERTENSION SNOMED Code(s): 14882069 Comment: BPs high today again. Seem to improve somewhat after morning meds. For now continue regimen of Valsartan, Metoprolol and increase Amlodipine to 10 mg (added this hospitalization) (4) Weakness Current Visit: Yes Status: Acute Code(s): R53.1 - WEAKNESS SNOMED Code(s) : 97985426 Comment: Unclear etiology. Continue Celexa for now (started in the hospital for possible depression). PT cleared patient to return home. (5) DVT prophylaxis Current Visit: Yes Status: Acute Code(s): WRD5222 - SNOMED Code(s): 793897243 Comment: On xarelto (6) DNR (do not resuscitate) Current Visit: Yes Status: Acute Status and Disposition: Patient is stable for discharge from medical perspective but still awaiting family's input to ensure safe discharge.
[2016-10-18] MEDS: Atorvastatin* 20 MG TAB PO SCH (21:28)
[2016-10-18] MEDS: Valsartan TAB* 160 MG PO SCH (21:38)
[2016-10-18] MEDS: Latanoprost 0.005%* 2.5 ml BTL BOTH EYES SCH (22:06)
[2016-10-19] MEDS: Acetaminophen TAB* 325 MG PO PRN ×2 (02:30→21:21)
[2016-10-19] MEDS: hydrALAZINE IV* 20 MG/ML VIAL IV PRN (03:45)
[2016-10-19] MEDS: Citalopram TAB* 20 MG PO SCH (09:11)
[2016-10-19] MEDS: Metoprolol Tartrate TAB* 25 MG PO SCH ×2 (09:11→21:17)
[2016-10-19] MEDS: Omeprazole CAP* 20 MG PO SCH (09:11)
[2016-10-19] MEDS: Rivaroxaban TAB(*) 15 MG PO SCH (09:11)
[2016-10-19] MEDS: Aspirin EC Low Dose* 81 MG TAB.EC PO SCH (09:11)
[2016-10-19] MEDS: amLODIPine TAB* 5 MG PO SCH (09:11)
[2016-10-19] MEDS: Amiodarone TAB* 200 MG PO SCH (09:11)
[2016-10-19] MEDS: Brimonid/Timolol 0.2/0.5%(NF) 10 ML OPHTH.SOLN BOTH EYES SCH ×2 (09:11→21:17)
[2016-10-19 13:13] LABS: Urine Bacteria Absent (Absent); Urine Bilirubin Negative (Negative); Urine Glucose Negative (Negative); Urine Nitrite Negative (Negative)
--- NOTE | 2016-10-19 13:37 | PN ---
Subjective Date of Service: 10/19/16 Interval History: Patient with abdominal discomfort and inability to void. Family History: Unchanged from Admission Social History: Unchanged from Admission Past Medical History: Unchanged from Admission Objective Active Medications: Acetaminophen (Tylenol Tab*) 650 mg PO Q4H PRN PRN Reason: FEVER/PAIN Last Admin: 10/19/16 02:30 Dose: 650 mg Amiodarone HCl (Cordarone Tab*) 200 mg PO DAILY [facility] Last Admin: 10/19/16 09:11 Dose: 200 mg Amlodipine Besylate (Norvasc Tab*) 5 mg PO DAILY [facility] Last Admin: 10/19/16 09:11 Dose: 5 mg Aspirin (Aspirin Ec Low Dose*) 81 mg PO DAILY [facility] Last Admin: 10/19/16 09:11 Dose: 81 mg Atorvastatin Calcium (Lipitor*) 20 mg PO 2100 [facility] Last Admin: 10/18/16 21:28 Dose: 20 mg Brimonidine/Timolol (Combigan 0.2/0.5% (Nf)) 1 drop BOTH EYES BID [facility] Last Admin: 10/19/16 09:11 Dose: 1 drop Citalopram Hydrobromide (Celexa Tab*) 20 mg PO DAILY [facility] Last Admin: 10/19/16 09:11 Dose: 20 mg Docusate Sodium (Colace Cap*) 100 mg PO BID PRN PRN Reason: CONSTIPATION Last Admin: 10/14/16 21:37 Dose: 100 mg Hydralazine HCl (Apresoline Iv*) 10 mg IV Q4H PRN PRN Reason: Systolic >170 Last Admin: 10/19/16 03:45 Dose: 10 mg Latanoprost (Xalatan 0.005%*) 1 drop BOTH EYES 2130 [facility] Last Admin: 10/18/16 22:06 Dose: 1 drop Metoprolol Tartrate (Lopressor Tab*) 25 mg PO BID [facility] Last Admin: 10/19/16 09:11 Dose: 25 mg Omeprazole (Prilosec Cap*) 20 mg PO DAILY [facility] Last Admin: 10/19/16 09:11 Dose: 20 mg Ondansetron HCl (Zofran Inj*) 4 mg IV Q6H PRN PRN Reason: NAUSEA Polyethylene Glycol/Electrolytes (Miralax*) 17 gm PO DAILY PRN PRN Reason: CONSTIPATION Rivaroxaban (Xarelto(*)) 15 mg PO DAILY [facility] Last Admin: 10/19/16 09:11 Dose: 15 mg Senna (Senokot Tab*) 2 tab PO BEDTIME PRN PRN Reason: CONSTIPATION Simethicone (Mylicon*) 80 mg PO Q6H PRN PRN Reason: Abdominal discomfort Last Admin: 10/17/16 17:12 Dose: 80 mg Valsartan (Diovan Tab*) 160 mg PO BEDTIME [facility] Last Admin: 10/18/16 21:38 Dose: 160 mg Vital Signs 10/18/16 10/18/16 10/18/16 15:42 18:14 20:00 Temperature 98.2 F 98.1 F Pulse Rate 60 60 Respiratory 16 16 16 Rate Blood Pressure 196/76 120/43 (mmHg) O2 Sat by Pulse 97 96 Oximetry 10/18/16 10/18/16 10/19/16 20:21 23:18 03:15 Temperature 98.1 F 97.9 F 97.8 F Pulse Rate 59 59 60 Respiratory 16 16 18 Rate Blood Pressure 164/60 109/45 164/72 (mmHg) O2 Sat by Pulse 97 96 96 Oximetry 10/19/16 10/19/16 10/19/16 03:33 07:52 08:00 Temperature 98.2 F Pulse Rate 60 Respiratory 18 18 Rate Blood Pressure 182/74 175/66 (mmHg) O2 Sat by Pulse 97 Oximetry 10/19/16 10/19/16 10:07 13:17 Temperature 98.2 F Pulse Rate 60 60 Respiratory 15 Rate Blood Pressure 110/47 148/57 (mmHg) O2 Sat by Pulse 97 Oximetry Oxygen Devices in Use Now: None Appearance: Elderly woman sitting up in bed in [place] Eyes: No Scleral Icterus Ears/Nose/Mouth/Throat: Mucous Membranes Moist Neck: No Thyroid Enlargement, Masses Respiratory: Clear to Auscultation Cardiovascular: - - S1S2 [place]ula Abdominal: No Hepatosplenomegaly, - - Distended bladder Lymphatic: No Cervical Adenopathy Extremities: No Edema Skin: No Rash or Ulcers Neurological: Alert and Oriented x 3 Result Diagrams: 10/13/16 06:33 10/13/16 06:33 Additional Lab and Data: Lab Results 10/12/16 10/12/16 10/12/16 Range/Units 14:43 14:43 14:43 WBC 7.1 (3.5-10.8) 10^3/ul RBC 4.13 (4.0-5.4) 10^6/ul Hgb 11.3 L (12.0-16.0) g/dl Hct 35 (35-47) % MCV 84 (80-97) fL MCH 27 (27-31) pg MCHC 33 (31-36) g/dl RDW 20 H (10.5-15) % Plt Count 285 (150-450) 10^3/ul MPV 9 (7.4-10.4) um3 Neut % (Auto) 72.4 (38-83) % Lymph % (Auto) 14.2 L (25-47) % [place] % (Auto) 7.1 (1-9) % Eos % (Auto) 5.1 (0-6) % Baso % (Auto) 1.2 (0-2) % Absolute Neuts (auto) 5.1 (1.5-7.7) 10^3/ul Absolute Lymphs (auto) 1.0 (1.0-4.8) 10^3/ul Absolute Monos (auto) 0.5 (0-0.8) 10^3/ul Absolute Eos (auto) 0.4 (0-0.6) 10^3/ul Absolute Basos (auto) 0.1 (0-0.2) 10^3/ul Absolute Nucleated RBC 0 10^3/ul Nucleated RBC % 0 INR (Anticoag Therapy) 1.98 H (0.89-1.11) APTT 40.2 H (26.0-36.3) seconds Sodium 131 L (133-145) mmol/L Potassium 4.2 (3.5-5.0) mmol/L Chloride 99 L (101-111) mmol/L Carbon Dioxide 26 (22-32) mmol/L Anion Gap 6 (2-11) mmol/L BUN 19 (6-24) mg/dL Creatinine 0.89 (0.51-0.95) mg/dL Est GFR ( Amer) 77.9 (>60) Est GFR (Non-Af Amer) 60.6 (>60) BUN/Creatinine Ratio 21.3 H (8-20) Glucose 100 (70-100) mg/dL Lactic Acid (0.5-2.0) mmol/L Calcium 9.3 (8.6-10.3) mg/dL Magnesium 1.9 (1.9-2.7) mg/dL Total Bilirubin 0.40 (0.2-1.0) mg/dL AST 19 (13-39) U/L ALT 16 (7-52) U/L Alkaline Phosphatase 95 (34-104) U/L Total Creatine Kinase 23 (10-223) U/L CK-MB (CK-2) 1.8 (0.6-6.3) ng/mL Troponin I 0.01 (<0.04) ng/mL C-Reactive Protein 6.84 H (< 5.00) mg/L B-Natriuretic Peptide ( - 100) pg/mL Total Protein 7.3 (6.4-8.9) g/dL Albumin 3.8 (3.2-5.2) g/dL Globulin 3.5 (2-4) g/dL Albumin/Globulin Ratio 1.1 (1-3) Lipase 41 (11.0-82.0) U/L TSH 2.24 (0.34-5.60) mcIU/mL Urine Color Urine Appearance Urine pH (5-9) Ur Specific [place] (1.010-1.030) Urine Protein (Negative) Urine Ketones (Negative) Urine Blood (Negative) Urine Nitrate (Negative) Urine Bilirubin (Negative) Urine Urobilinogen (Negative) Ur Leukocyte Esterase (Negative) Urine WBC (Auto) (Absent) Urine RBC (Auto) (Absent) Ur Squamous Epith Cells (Absent) Urine Bacteria (Absent) Urine Glucose (Negative) Urine Ascorbic Acid (Negative) 10/12/16 10/12/16 10/12/16 Range/Units 14:43 15:35 17:35 WBC (3.5-10.8) 10^3/ul RBC (4.0-5.4) 10^6/ul Hgb (12.0-16.0) g/dl Hct (35-47) % MCV (80-97) fL MCH (27-31) pg MCHC (31-36) g/dl RDW (10.5-15) % Plt Count (150-450) 10^3/ul MPV (7.4-10.4) um3 Neut % (Auto) (38-83) % Lymph % (Auto) (25-47) % [place] % (Auto) (1-9) % Eos % (Auto) (0-6) % Baso % (Auto) (0-2) % Absolute Neuts (auto) (1.5-7.7) 10^3/ul Absolute Lymphs (auto) (1.0-4.8) 10^3/ul Absolute Monos (auto) (0-0.8) 10^3/ul Absolute Eos (auto) (0-0.6) 10^3/ul Absolute Basos (auto) (0-0.2) 10^3/ul Absolute Nucleated RBC 10^3/ul Nucleated RBC % INR (Anticoag Therapy) (0.89-1.11) APTT (26.0-36.3) seconds Sodium (133-145) mmol/L Potassium (3.5-5.0) mmol/L Chloride (101-111) mmol/L Carbon Dioxide (22-32) mmol/L Anion Gap (2-11) mmol/L BUN (6-24) mg/dL Creatinine (0.51-0.95) mg/dL Est GFR ( Amer) (>60) Est GFR (Non-Af Amer) (>60) BUN/Creatinine Ratio (8-20) Glucose (70-100) mg/dL Lactic Acid 0.8 (0.5-2.0) mmol/L Calcium (8.6-10.3) mg/dL Magnesium (1.9-2.7) mg/dL Total Bilirubin (0.2-1.0) mg/dL AST (13-39) U/L ALT (7-52) U/L Alkaline Phosphatase (34-104) U/L Total Creatine Kinase (10-223) U/L CK-MB (CK-2) (0.6-6.3) ng/mL Troponin I (<0.04) ng/mL C-Reactive Protein (< 5.00) mg/L B-Natriuretic Peptide 199 H ( - 100) pg/mL Total Protein (6.4-8.9) g/dL Albumin (3.2-5.2) g/dL Globulin (2-4) g/dL Albumin/Globulin Ratio (1-3) Lipase (11.0-82.0) U/L TSH (0.34-5.60) mcIU/mL Urine Color Yellow Urine Appearance Cloudy Urine pH 7.0 (5-9) Ur Specific [place] 1.009 L (1.010-1.030) Urine Protein Negative (Negative) Urine Ketones Negative (Negative) Urine Blood Negative (Negative) Urine Nitrate Positive H (Negative) Urine Bilirubin Negative (Negative) Urine Urobilinogen Negative (Negative) Ur Leukocyte Esterase 2+ H (Negative) Urine WBC (Auto) 1+(6-10/hpf) H (Absent) Urine RBC (Auto) 1+(3-5/hpf) H (Absent) Ur Squamous Epith Cells Present H (Absent) Urine Bacteria 1+ H (Absent) Urine Glucose Negative (Negative) Urine Ascorbic Acid * H (Negative) Assess/Plan/Problems-Billing Ms Luz is an 81 yo F with a h/o HTN, CAD, afib and past h/o TIA who presented to the ER for c/o weakness and lightheadedness and was found to have a UTI. - Patient Problems (1) UTI (urinary tract infection) Current Visit: Yes Status: Acute Comment: Resolved. rechecked urine today with urinary retention. No evidence of UTI. (2) Afib Current Visit: Yes Status: Acute Code(s): I48.91 - UNSPECIFIED ATRIAL FIBRILLATION SNOMED Code(s): 83505121 Comment: HR adequately controlled. Continue xarelto, amiodarone and metoprolol. (3) Hypertension Current Visit: Yes Status: Acute Code(s): I10 - ESSENTIAL (PRIMARY) HYPERTENSION SNOMED Code(s): 55902584 Comment: BPs volatile. For now continue regimen of Valsartan, Metoprolol and increase Amlodipine to 10 mg (added this hospitalization) (4) Weakness Current Visit: Yes Status: Acute Code(s): R53.1 - WEAKNESS SNOMED Code(s) : 82030432 Comment: Unclear etiology. May be from urinary retention or depression.Continue Celexa for now (started in the hospital for possible depression). PT cleared patient to return home. (5) DVT prophylaxis Current Visit: Yes Status: Acute Code(s): QHK0166 - SNOMED Code(s): 021994922 Comment: On xarelto (6) DNR (do not resuscitate) Current Visit: Yes Status: Acute Status and Disposition: Patient is stable for discharge from medical perspective but still awaiting family's input to ensure safe discharge. Will call daughter today if she does not visit.
[2016-10-19] MEDS: Valsartan TAB* 160 MG PO SCH (21:17)
[2016-10-19] MEDS: Atorvastatin* 20 MG TAB PO SCH (21:17)
[2016-10-19] MEDS: Latanoprost 0.005%* 2.5 ml BTL BOTH EYES SCH (21:58)
[2016-10-20] MEDS: hydrALAZINE IV* 20 MG/ML VIAL IV PRN (08:29)
[2016-10-20] MEDS: Metoprolol Tartrate TAB* 25 MG PO SCH ×2 (08:59→20:10)
[2016-10-20] MEDS: Rivaroxaban TAB(*) 15 MG PO SCH (08:59)
[2016-10-20] MEDS: Citalopram TAB* 20 MG PO SCH (08:59)
[2016-10-20] MEDS: Omeprazole CAP* 20 MG PO SCH (08:59)
[2016-10-20] MEDS: amLODIPine TAB* 5 MG PO SCH (08:59)
[2016-10-20] MEDS: Acetaminophen TAB* 325 MG PO PRN ×2 (08:59→20:10)
[2016-10-20] MEDS: Amiodarone TAB* 200 MG PO SCH (08:59)
[2016-10-20] MEDS: Aspirin EC Low Dose* 81 MG TAB.EC PO SCH (08:59)
[2016-10-20] MEDS: Brimonid/Timolol 0.2/0.5%(NF) 10 ML OPHTH.SOLN BOTH EYES SCH ×2 (09:00→20:11)
[2016-10-20 16:08] LABS: Hematocrit 33 % (35-47); Hemoglobin 10.8 g/dl (12.0-16.0); Mean Corpuscular HGB Conc 33 g/dl (31-36); Mean Corpuscular Hemoglobin 27 pg (27-31); Mean Corpuscular Volume 84 fL (80-97); Mean Platelet Volume 8 um3 (7.4-10.4); Red Blood Count 3.95 10^6/ul (4.0-5.4); Red Cell Distribution Width 20 % (10.5-15); White Blood Count 7.3 10^3/ul (3.5-10.8)
[2016-10-20 16:16] LABS: BUN/Creatinine Ratio 14.1 (8-20); Calcium 8.7 mg/dL (8.6-10.3); EGFR African American 101.1 (>60); EGFR Non-African American 78.6 (>60); Potassium 3.3 mmol/L (3.5-5.0)
--- NOTE | 2016-10-20 16:35 | PN ---
Subjective Date of Service: 10/20/16 Interval History: Patient again with abdominal discomfort. Says she had trouble ambulating today because of it. Family History: Unchanged from Admission Social History: Unchanged from Admission Past Medical History: Unchanged from Admission Objective Active Medications: Acetaminophen (Tylenol Tab*) 650 mg PO Q4H PRN PRN Reason: FEVER/PAIN Last Admin: 10/20/16 08:59 Dose: 650 mg Amiodarone HCl (Cordarone Tab*) 200 mg PO DAILY [facility] Last Admin: 10/20/16 08:59 Dose: 200 mg Amlodipine Besylate (Norvasc Tab*) 5 mg PO DAILY [facility] Last Admin: 10/20/16 08:59 Dose: 5 mg Aspirin (Aspirin Ec Low Dose*) 81 mg PO DAILY [facility] Last Admin: 10/20/16 08:59 Dose: 81 mg Atorvastatin Calcium (Lipitor*) 20 mg PO 2100 [facility] Last Admin: 10/19/16 21:17 Dose: 20 mg Brimonidine/Timolol (Combigan 0.2/0.5% (Nf)) 1 drop BOTH EYES BID [facility] Last Admin: 10/20/16 09:00 Dose: 1 drop Citalopram Hydrobromide (Celexa Tab*) 20 mg PO DAILY [facility] Last Admin: 10/20/16 08:59 Dose: 20 mg Docusate Sodium (Colace Cap*) 100 mg PO BID PRN PRN Reason: CONSTIPATION Last Admin: 10/14/16 21:37 Dose: 100 mg Hydralazine HCl (Apresoline Iv*) 10 mg IV Q4H PRN PRN Reason: Systolic >170 Last Admin: 10/20/16 08:29 Dose: 10 mg Latanoprost (Xalatan 0.005%*) 1 drop BOTH EYES 2130 [facility] Last Admin: 10/19/16 21:58 Dose: 1 drop Metoprolol Tartrate (Lopressor Tab*) 25 mg PO BID [facility] Last Admin: 10/20/16 08:59 Dose: 25 mg Omeprazole (Prilosec Cap*) 20 mg PO DAILY [facility] Last Admin: 10/20/16 08:59 Dose: 20 mg Ondansetron HCl (Zofran Inj*) 4 mg IV Q6H PRN PRN Reason: NAUSEA Polyethylene Glycol/Electrolytes (Miralax*) 17 gm PO DAILY PRN PRN Reason: CONSTIPATION Rivaroxaban (Xarelto(*)) 15 mg PO DAILY [facility] Last Admin: 10/20/16 08:59 Dose: 15 mg Senna (Senokot Tab*) 2 tab PO BEDTIME PRN PRN Reason: CONSTIPATION Simethicone (Mylicon*) 80 mg PO Q6H PRN PRN Reason: Abdominal discomfort Last Admin: 10/17/16 17:12 Dose: 80 mg Valsartan (Diovan Tab*) 160 mg PO BEDTIME [facility] Last Admin: 10/19/16 21:17 Dose: 160 mg Vital Signs 10/19/16 10/20/16 10/20/16 20:00 00:17 04:04 Temperature 98.3 F 97.7 F Pulse Rate 59 60 Respiratory 20 16 14 Rate Blood Pressure 122/59 152/66 (mmHg) O2 Sat by Pulse 95 95 Oximetry 10/20/16 10/20/16 10/20/16 07:40 12:02 15:30 Temperature 98.3 F 97.8 F 97.4 F Pulse Rate 60 58 60 Respiratory 18 20 Rate Blood Pressure 184/68 152/71 166/62 (mmHg) O2 Sat by Pulse 98 98 97 Oximetry Oxygen Devices in Use Now: None Appearance: Elderly woman lying in bed in NAD Eyes: No Scleral Icterus Ears/Nose/Mouth/Throat: Clear Oropharnyx, Mucous Membranes Moist Neck: No Thyroid Enlargement, Masses Respiratory: Clear to Auscultation Cardiovascular: RRR, - - S1 S2 paula Abdominal: NL Sounds; No Tenderness; No Distention, No Hepatosplenomegaly Lymphatic: No Cervical Adenopathy Extremities: No Edema Skin: No Rash or Ulcers Neurological: Alert and Oriented x 3 Result Diagrams: 10/20/16 15:52 10/20/16 15:52 Additional Lab and Data: Lab Results 10/12/16 10/12/16 10/12/16 Range/Units 14:43 14:43 14:43 WBC 7.1 (3.5-10.8) 10^3/ul RBC 4.13 (4.0-5.4) 10^6/ul Hgb 11.3 L (12.0-16.0) g/dl Hct 35 (35-47) % MCV 84 (80-97) fL MCH 27 (27-31) pg MCHC 33 (31-36) g/dl RDW 20 H (10.5-15) % Plt Count 285 (150-450) 10^3/ul MPV 9 (7.4-10.4) um3 Neut % (Auto) 72.4 (38-83) % Lymph % (Auto) 14.2 L (25-47) % Bladen % (Auto) 7.1 (1-9) % Eos % (Auto) 5.1 (0-6) % Baso % (Auto) 1.2 (0-2) % Absolute Neuts (auto) 5.1 (1.5-7.7) 10^3/ul Absolute Lymphs (auto) 1.0 (1.0-4.8) 10^3/ul Absolute Monos (auto) 0.5 (0-0.8) 10^3/ul Absolute Eos (auto) 0.4 (0-0.6) 10^3/ul Absolute Basos (auto) 0.1 (0-0.2) 10^3/ul Absolute Nucleated RBC 0 10^3/ul Nucleated RBC % 0 INR (Anticoag Therapy) 1.98 H (0.89-1.11) APTT 40.2 H (26.0-36.3) seconds Sodium 131 L (133-145) mmol/L Potassium 4.2 (3.5-5.0) mmol/L Chloride 99 L (101-111) mmol/L Carbon Dioxide 26 (22-32) mmol/L Anion Gap 6 (2-11) mmol/L BUN 19 (6-24) mg/dL Creatinine 0.89 (0.51-0.95) mg/dL Est GFR ( Amer) 77.9 (>60) Est GFR (Non-Af Amer) 60.6 (>60) BUN/Creatinine Ratio 21.3 H (8-20) Glucose 100 (70-100) mg/dL Lactic Acid (0.5-2.0) mmol/L Calcium 9.3 (8.6-10.3) mg/dL Magnesium 1.9 (1.9-2.7) mg/dL Total Bilirubin 0.40 (0.2-1.0) mg/dL AST 19 (13-39) U/L ALT 16 (7-52) U/L Alkaline Phosphatase 95 (34-104) U/L Total Creatine Kinase 23 (10-223) U/L CK-MB (CK-2) 1.8 (0.6-6.3) ng/mL Troponin I 0.01 (<0.04) ng/mL C-Reactive Protein 6.84 H (< 5.00) mg/L B-Natriuretic Peptide ( - 100) pg/mL Total Protein 7.3 (6.4-8.9) g/dL Albumin 3.8 (3.2-5.2) g/dL Globulin 3.5 (2-4) g/dL Albumin/Globulin Ratio 1.1 (1-3) Lipase 41 (11.0-82.0) U/L TSH 2.24 (0.34-5.60) mcIU/mL Urine Color Urine Appearance Urine pH (5-9) Ur Specific [place] (1.010-1.030) Urine Protein (Negative) Urine Ketones (Negative) Urine Blood (Negative) Urine Nitrate (Negative) Urine Bilirubin (Negative) Urine Urobilinogen (Negative) Ur Leukocyte Esterase (Negative) Urine WBC (Auto) (Absent) Urine RBC (Auto) (Absent) Ur Squamous Epith Cells (Absent) Urine Bacteria (Absent) Urine Glucose (Negative) Urine Ascorbic Acid (Negative) 10/12/16 10/12/16 10/12/16 Range/Units 14:43 15:35 17:35 WBC (3.5-10.8) 10^3/ul RBC (4.0-5.4) 10^6/ul Hgb (12.0-16.0) g/dl Hct (35-47) % MCV (80-97) fL MCH (27-31) pg MCHC (31-36) g/dl RDW (10.5-15) % Plt Count (150-450) 10^3/ul MPV (7.4-10.4) um3 Neut % (Auto) (38-83) % Lymph % (Auto) (25-47) % Bladen % (Auto) (1-9) % Eos % (Auto) (0-6) % Baso % (Auto) (0-2) % Absolute Neuts (auto) (1.5-7.7) 10^3/ul Absolute Lymphs (auto) (1.0-4.8) 10^3/ul Absolute Monos (auto) (0-0.8) 10^3/ul Absolute Eos (auto) (0-0.6) 10^3/ul Absolute Basos (auto) (0-0.2) 10^3/ul Absolute Nucleated RBC 10^3/ul Nucleated RBC % INR (Anticoag Therapy) (0.89-1.11) APTT (26.0-36.3) seconds Sodium (133-145) mmol/L Potassium (3.5-5.0) mmol/L Chloride (101-111) mmol/L Carbon Dioxide (22-32) mmol/L Anion Gap (2-11) mmol/L BUN (6-24) mg/dL Creatinine (0.51-0.95) mg/dL Est GFR ( Amer) (>60) Est GFR (Non-Af Amer) (>60) BUN/Creatinine Ratio (8-20) Glucose (70-100) mg/dL Lactic Acid 0.8 (0.5-2.0) mmol/L Calcium (8.6-10.3) mg/dL Magnesium (1.9-2.7) mg/dL Total Bilirubin (0.2-1.0) mg/dL AST (13-39) U/L ALT (7-52) U/L Alkaline Phosphatase (34-104) U/L Total Creatine Kinase (10-223) U/L CK-MB (CK-2) (0.6-6.3) ng/mL Troponin I (<0.04) ng/mL C-Reactive Protein (< 5.00) mg/L B-Natriuretic Peptide 199 H ( - 100) pg/mL Total Protein (6.4-8.9) g/dL Albumin (3.2-5.2) g/dL Globulin (2-4) g/dL Albumin/Globulin Ratio (1-3) Lipase (11.0-82.0) U/L TSH (0.34-5.60) mcIU/mL Urine Color Yellow Urine Appearance Cloudy Urine pH 7.0 (5-9) Ur Specific [place] 1.009 L (1.010-1.030) Urine Protein Negative (Negative) Urine Ketones Negative (Negative) Urine Blood Negative (Negative) Urine Nitrate Positive H (Negative) Urine Bilirubin Negative (Negative) Urine Urobilinogen Negative (Negative) Ur Leukocyte Esterase 2+ H (Negative) Urine WBC (Auto) 1+(6-10/hpf) H (Absent) Urine RBC (Auto) 1+(3-5/hpf) H (Absent) Ur Squamous Epith Cells Present H (Absent) Urine Bacteria 1+ H (Absent) Urine Glucose Negative (Negative) Urine Ascorbic Acid * H (Negative) Microbiology and Other Data: Microbiology 10/19/16 12:40 Urine Culture - Final Urine No Growth (<1,000 CFU/mL) Assess/Plan/Problems-Billing Ms Luz is an 81 yo F with a h/o HTN, CAD, afib and past h/o TIA who presented to the ER for c/o weakness and lightheadedness and was found to have a UTI. - Patient Problems (1) UTI (urinary tract infection) Current Visit: Yes Status: Acute Comment: Resolved. rechecked urine today with urinary retention. No evidence of UTI. (2) Afib Current Visit: Yes Status: Acute Code(s): I48.91 - UNSPECIFIED ATRIAL FIBRILLATION SNOMED Code(s): 88386754 Comment: HR adequately controlled. Continue xarelto, amiodarone and metoprolol. (3) Hypertension Current Visit: Yes Status: Acute Code(s): I10 - ESSENTIAL (PRIMARY) HYPERTENSION SNOMED Code(s): 73007170 Comment: BPs volatile again. For now continue regimen of Valsartan, Metoprolol and Amlodipine. Will increase Valsartan to 320. (4) Weakness Current Visit: Yes Status: Acute Code(s): R53.1 - WEAKNESS SNOMED Code(s) : 58464515 Comment: Unclear etiology. May be from urinary retention or depression.Continue Celexa for now (started in the hospital for possible depression). PT cleared patient to return home. (5) Abdominal pain Current Visit: Yes Status: Acute Code(s): R10.9 - UNSPECIFIED ABDOMINAL PAIN SNOMED Code(s): 52117825 Comment: Unclear etiology. Abdomen is soft. Had CT scan already. Consider other possibilities like interstitial cystitis. Would benefit from urology follow up. (6) DVT prophylaxis Current Visit: Yes Status: Acute Code(s): EGV1563 - SNOMED Code(s): 601075435 Comment: On xarelto (7) DNR (do not resuscitate) Current Visit: Yes Status: Acute Status and Disposition: Patient is stable for discharge from medical perspective but still awaiting family's input to ensure safe discharge. To Ana.
[2016-10-20] MEDS: Atorvastatin* 20 MG TAB PO SCH (20:10)
[2016-10-20] MEDS: Valsartan TAB* 160 MG PO SCH (20:11)
[2016-10-20] MEDS: Latanoprost 0.005%* 2.5 ml BTL BOTH EYES SCH (21:00)
[2016-10-21] MEDS: Brimonid/Timolol 0.2/0.5%(NF) 10 ML OPHTH.SOLN BOTH EYES SCH ×2 (07:50→20:32)
[2016-10-21] MEDS: Metoprolol Tartrate TAB* 25 MG PO SCH ×2 (07:50→20:34)
[2016-10-21] MEDS: Amiodarone TAB* 200 MG PO SCH (07:50)
[2016-10-21] MEDS: Aspirin EC Low Dose* 81 MG TAB.EC PO SCH (07:51)
[2016-10-21] MEDS: Rivaroxaban TAB(*) 15 MG PO SCH (07:51)
[2016-10-21] MEDS: amLODIPine TAB* 5 MG PO SCH (07:51)
[2016-10-21] MEDS: hydrALAZINE IV* 20 MG/ML VIAL IV PRN (07:51)
[2016-10-21] MEDS: Citalopram TAB* 20 MG PO SCH (07:51)
[2016-10-21] MEDS: Omeprazole CAP* 20 MG PO SCH (07:51)
[2016-10-21] MEDS: Acetaminophen TAB* 325 MG PO PRN (20:34)
[2016-10-21] MEDS: Atorvastatin* 20 MG TAB PO SCH (20:34)
[2016-10-21] MEDS: Valsartan TAB* 160 MG PO SCH (20:34)
[2016-10-21] MEDS: Docusate CAP* 100 MG PO PRN (20:35)
[2016-10-21] MEDS: Latanoprost 0.005%* 2.5 ml BTL BOTH EYES SCH (20:43)
--- NOTE | 2016-10-22 03:30 | PN ---
Progress Note - Progress Note Note: Paged by RN - patient was found on ground. Unwittnessed fall. Alarm was not heard. Patient now c/o neck pain. No neuro deficit with normal vitals. Will obtain head and neck CT.
[2016-10-22] MEDS: Acetaminophen TAB* 325 MG PO PRN (05:05)
[2016-10-22] MEDS: Amiodarone TAB* 200 MG PO SCH (07:50)
[2016-10-22] MEDS: Rivaroxaban TAB(*) 15 MG PO SCH (07:50)
[2016-10-22] MEDS: Citalopram TAB* 20 MG PO SCH (07:50)
[2016-10-22] MEDS: Aspirin EC Low Dose* 81 MG TAB.EC PO SCH (07:50)
[2016-10-22] MEDS: Omeprazole CAP* 20 MG PO SCH (07:50)
[2016-10-22] MEDS: Brimonid/Timolol 0.2/0.5%(NF) 10 ML OPHTH.SOLN BOTH EYES SCH (07:50)
[2016-10-22] MEDS: amLODIPine TAB* 5 MG PO SCH (07:50)
[2016-10-22] MEDS: Metoprolol Tartrate TAB* 25 MG PO SCH (07:50)
--- NOTE | 2016-10-22 08:14 | DS ---
DISCHARGE SUMMARY:* DATE OF ADMISSION: DATE OF DISCHARGE: ADDENDUM: Celexa 20 mg p.o. every day. [id number]/[facility] #: [id number] [facility]
--- NOTE | 2016-10-22 08:47 | DS ---
MEDICATION ADDENDUM NOW INCLUDED ON THIS REPORT DISCHARGE SUMMARY: DATE OF ADMISSION: 10/12/16 DATE OF DISCHARGE: 10/22/16 ADMISSION DIAGNOSES: 1. Weakness. 2. Dizziness. 3. Hypertension. 4. Transient ischemic attack. 5. Gastroesophageal reflux disease. 6. Aortic stenosis. 7. Coronary artery disease. 8. Atrial fibrillation. DISCHARGE DIAGNOSES: 1. Weakness. 2. Dizziness. 3. Hypertension. 4. Transient ischemic attack. 5. Gastroesophageal reflux disease. 6. Aortic stenosis. 7. Coronary artery disease. 8. Atrial fibrillation. 9. Urinary tract infection. HOSPITAL COURSE: The patient is a 81-year-old woman who presented to the [facility] with dizziness and weakness. See H and P for the details. The patient was treated with a presumptive UTI with Rocephin. Her culture ended up not growing anything, but she did feel somewhat better after Rocephin, so was was kept on 5 days. By the fifth day, she was feeling much better, walking around, ambulating. However, a day after Rocephin stopped she started feeling like she had to go, but could not, pain in her abdominal area around her bladder. The patient had a bladder scan and a Bee placed, but the Bee was too uncomfortable. Only 200 cc came out also with the Bee. We removed the Bee. A straight catheter was necessary, but she was able to void on her own and did feel better when she voided, but otherwise again felt extremely uncomfortable. Repeat urinalysis on 10/19/16 was fairly unremarkable and there was no growth in the urine culture that day. It was unclear as to the etiology of her abdominal pain. She did have a CAT done on 10/12/16 which was also fairly unrevealing. Concerns could be for something such as interstitial cystitis which she may be able to followup with urology for as an outpatient. In the interim, she will be transferred to a snf facility for rehabilitation in hopes that she will feel better, function better , and be able to follow up as an outpatient with Urology. PHYSICAL EXAMINATION ON THE DATE OF DISCHARGE: Elderly woman, lying in bed in no acute distress. Vital Signs: Temperature 97.9, heart rate is 60 beats per minute, respiratory rate is 20, pulse ox 95, blood pressure is 146/70. HEENT: Normocephalic and atraumatic. Pupils are equal, round, and reactive to light. Moist mucosa membranes. Neck: Supple. No JVD, bruits, palpable thyroid or lymphadenopathy. Chest: Clear to auscultation and percussion bilaterally. Cardiovascular: S1 and S2 appreciated. Abdominal Exam: Positive bowel sounds in all 4 quadrants. Soft, nontender and nondistended. Extremities: No cyanosis, clubbing or edema. +2 pulses bilaterally. Neuro: Alert, and oriented x3. Moves all extremities. Skin: No rashes or abnormalities. STUDIES DONE WHILE AT THE HOSPITAL: Abdominopelvic CT 10/12/16, Impression: ___ ___ adjacent to the rectum low in the pelvis. No evidence of bowel obstruction , noted diverticulosis or definite evidence of diverticulitis. Cholelithiasis without biliary dilatation and small left pleural effusions noted. Hiatal hernia present. Mild ectasia of the abdominal aorta noted. The patient is status post left hip replacement. DISCHARGE MEDICATIONS: 1. Protonix 40 mg daily. 2. Valsartan 320 mg mg at bedtime, this was increased from 160 mg she was taking at home. 3. Xarelto 15 mg daily. 4. Multivitamin 1 capsule daily. 5. Metoprolol tartrate 25 mg twice daily. 6. Xalatan 1 drop both eyes in the evening. 7. Aspirin 81 mg daily. 8. Combigan 1 drop both eyes twice daily. 9. Lipitor 20 mg daily. 10. Amiodarone 200 mg daily. 11. Tylenol 650 mg every 4 hours as needed. 12. Amlodipine 10 mg p.o. daily. 13. Docusate 100 mg twice a day as needed. 14. Senna 2 times at bedtime as needed. 15. MiraLAX 17 g daily as needed. DISCHARGE PLAN: The patient will be discharged to snf facility. Once she received rehab the patient should improve and hopefully be able to go to urology for further evaluation of her bladder pain. TIME SPENT: Over 40 minutes was spent on this discharge, more than 25 minutes of which was spent in direct [id number] contact with the patient in evaluation , physical exam, counseling, and coordination of care. ADDENDUM TO MEDICATIONS: 16. Celexa 20 mg p.o. every day. CC: David Gibson MD* [id number]/[facility] #: [id number]/[facility] #: [id number] [facility]
[2016-10-22 10:19] VITALS: BP 120/58
--- NOTE | 2016-10-22 13:57 | DS ---
DISCHARGE SUMMARY: DATE OF ADMISSION: DATE OF DISCHARGE: 10/22/16 ADDENDUM: In addition to the discharge summary dictated by Dr. Nichole, one issue that has been prominent through the patient's hospitalization is very labile blood pressure. The patient's blood pressures have ranged anywhere from 90 systolic up to 222 systolic. The patient's blood pressure on presentation was markedly elevated. She ultimately regained some better control. However, every morning it appears that the patient's blood pressure is at its highest, being in the 180s to 190s range followed by her receiving her oral antihypertensives with the blood pressure dropping down into the 120s to 150s range in general. Additionally, the nurses are noting that if a blood pressure is obtained with the machine, it is reading much higher than if it is obtained manually. For example, on the day of discharge, patient's blood pressure with the machine was read as 201/76, manually at the same time, it was 170/78. The patient then received her oral antihypertensives and her blood pressure dropped to 120/58. The patient's blood pressure again is labile. However, at her advanced age of 81, I would not be too aggressive in trying to lower her blood pressure. I believe that a blood pressure for this patient of 120s to 160s is acceptable and would not try to get her much lower than that as she has increased risk of falling if she is actually hypotensive. At this point, I do feel that the patient is stable for discharge to [facility] and can go there today. The patient's medication regimen is as dictated by Dr. Nichole on his discharge summary. CC: Dr. Gibson* [id number]/[facility] #: [id number] [facility]
== END 2016-10-22 12:20 | DRG 690 ==
LOC: ED 14:14 → MED 18:54 → OBSVTOIN 10-13 15:13
PROVIDERS: ADMIT Internal Medicine; ATTEND Hospitalist
DX: N39.0 Urinary tract infection, site not specified (principal); I44.2 Atrioventricular block, complete; E86.0 Dehydration; I48.91 Unspecified atrial fibrillation; I11.9 Hypertensive heart disease without heart failure; I35.0 Nonrheumatic aortic (valve) stenosis; I25.10 Atherosclerotic heart disease of native coronary artery without angina pectoris; K21.9 Gastro-esophageal reflux disease without esophagitis; K44.9 Diaphragmatic hernia without obstruction or gangrene; R53.1 Weakness; Z95.5 Presence of coronary angioplasty implant and graft; Z79.01 Long term (current) use of anticoagulants; Z95.0 Presence of cardiac pacemaker; Z95.2 Presence of prosthetic heart valve; Z96.649 Presence of unspecified artificial hip joint; Z86.73 Personal history of transient ischemic attack (TIA), and cerebral infarction without residual deficits; Z79.82 Long term (current) use of aspirin; Z79.1 Long term (current) use of non-steroidal anti-inflammatories (NSAID); Z79.899 Other long term (current) drug therapy; Z82.49 Family history of ischemic heart disease and other diseases of the circulatory system; M54.2 Cervicalgia; W18.30XA Fall on same level, unspecified, initial encounter; Y93.9 Activity, unspecified; Y92.230 Patient room in hospital as the place of occurrence of the external cause; Y99.9 Unspecified external cause status; R10.31 Right lower quadrant pain; Z66 Do not resuscitate
CPT/HCPCS: 36415; 71010; 74177; 80048; 80053; 81003; 81015; 82550; 82553; 83605; 83690; 83735; 83880; 84443; 84484; 85025; 85610; 85730; 86140; 87040; 87086; 93005; 94760; A9270-GY; G0378; G8978-GP-CK; G8979-GP-CI; G8980-GP-CK; J0360; J0696; J2405; Q9967